=== PATIENT | male | born 1940 | race Caucasian/White ===

== ENCOUNTER 2017-08-13 19:59 | Inpatient (IN) | payer MEDICARE, MEDICAID ==
[2017-08-13] MEDS ORDERED: IPRATROPIUM/ALBUTEROL 0.5-2.5 MG/3 ML AMPUL NEB ONE (20:10)
[2017-08-13] MEDS ORDERED: ALBUTEROL SULFATE 0.083% NEB 2.5 MG/3 ML AMPUL NEB SCH (20:25)
[2017-08-13 20:29] LABS: ABSOLUTE LYMPHOCYTES (AUTO) 2.3 10^3/uL (0.5-4.7); BASOPHILS % (AUTO) 0.4 % (0-2); EOSINOPHILS % (AUTO) 0.2 % (0-6); HEMATOCRIT 36.9 % (37.9-51.0); HEMOGLOBIN 12.3 g/dL (13.5-17.0); LYMPHOCYTES % (AUTO) 16.9 % (13-45); MEAN CORPUSCULAR HEMOGLOBIN 29.7 pg (27.0-33.4); MEAN CORPUSCULAR HGB CONC 33.4 g/dL (32.0-36.0); MEAN CORPUSCULAR VOLUME 89 fl (80-97); MONOCYTES % (AUTO) 7.7 % (3-13); RED BLOOD COUNT 4.15 10^6/uL (4.35-5.55); SEGMENTED NEUTROPHILS % (AUTO) 74.8 % (42-78); WHITE BLOOD COUNT 13.4 10^3/uL (4.0-10.5)
--- NOTE | 2017-08-13 20:37 | RADIOLOGY REPORT (SQ) ---
EXAM DESCRIPTION: CHEST SINGLE VIEW COMPLETED DATE/TIME: 08/13/2017 8:19 pm REASON FOR STUDY: SOB COMPARISON: 06/30/2010 EXAM PARAMETERS: NUMBER OF VIEWS: One view. TECHNIQUE: Single frontal radiographic view of the chest acquired. RADIATION DOSE: NA LIMITATIONS: None. FINDINGS: LUNGS AND PLEURA: Greater than 75% pneumothorax on the left. No midline shift. Right estella g is clear. Underlying obstructive pulmonary disease. MEDIASTINUM AND HILAR STRUCTURES: No masses. Contour normal. HEART AND VASCULAR STRUCTURES: Heart normal in size. Normal vasculature. BONES: No acute findings. HARDWARE: Interval placement of a dual lead transvenous pacemaker. OTHER: No other significant finding. IMPRESSION: High-grade left-sided pneumothorax without tension. COPD. Interval placement of a pacemaker. COMMENT: Pertinent findings on the imaging study reported as a CRITICAL RESULT to MEKA Gonzalez at20:31 on 08/13/2017. Category of Critical Result: Pneumothorax. TECHNICAL DOCUMENTATION: JOB ID: [id number] [employer]- All Rights Reserved
--- NOTE | 2017-08-13 20:42 | ER Document Report ---
ED General - General Chief Complaint: Shortness Of Breath Stated Complaint: DIFFICULTY BREATHING Time Seen by Provider: 08/13/17 20:16 Notes: Patient is a 77-year-old male presents emergency department complaining of shortness of breath. Patient states that this morning at approximately 4 AM he is having shortness of breath and throughout the day has been having dyspnea on exertion. Does admit to history of COPD not on O2. States he does not have breathing treatments at home. States that EMS came and gave him a breathing treatment felt better initially but shortness of breath return throughout the day. Patient denies any previous chest surgery except for pacemaker placed for history of sick sinus syndrome. TRAVEL OUTSIDE OF THE [place] IN LAST 30 DAYS: No - Related Data Allergies/Adverse Reactions: codeine [Codeine] Allergy (Verified 08/13/17 20:43) Home Medications: Current Home Medications Chlorthalidone [Chlorthalidone] 12.5 mg PO DAILY 08/13/17 [History] Metoprolol Tartrate [Lopressor 50 mg Tablet] 50 mg PO BID 08/13/17 [History] Past Medical History - Social History Smoking Status: Former Smoker Family History: Reviewed & Not Pertinent Patient has suicidal ideation: No Patient has homicidal ideation: No - Past Medical History Cardiac Medical History: Reports: Hx Hypercholesterolemia, Hx Hypertension Pulmonary Medical History: Reports: Hx COPD Renal/ Medical History: Denies: Hx Peritoneal Dialysis Past Surgical History: Reports: Hx Cardiac Surgery - pace maker, Hx Pacemaker - Immunizations Hx Diphtheria, Pertussis, Tetanus Vaccination: Yes Review of Systems - Review of Systems Constitutional: No symptoms reported Cardiovascular: See HPI Respiratory: See HPI Gastrointestinal: No symptoms reported -: Yes All other systems reviewed and negative Physical Exam - Vital signs Vitals: Temp Resp BP Pulse Ox 98.4 F 21 H 154/98 H 93 08/13/17 20:10 08/13/17 20:10 08/13/17 20:10 08/13/17 20:10 - Notes Notes: PHYSICAL EXAM GENERAL: Alert, interacts well. HEAD: Normocephalic, atraumatic. EYES: Pupils equal, round, and reactive to light. Extraocular movements intact. ENT: Oral mucosa moist, tongue midline. NECK: Full range of motion. Supple. Trachea midline. LUNGS: Clear to auscultation on the right but diminished on the left in all thao. no wheezes, rales, or rhonchi. No respiratory distress. HEART: Regular rate and rhythm. No murmurs, gallops, or rubs. ABDOMEN: Soft, nondistended, nontender. No guarding, rebound, or rigidity.. Bowel sounds present in all 4 quadrants. EXTREMITIES: Moves all 4 extremities spontaneously. No edema, radial and dorsalis pedis pulses 2/4 bilaterally. No cyanosis. NEUROLOGICAL: Alert and oriented x4. Normal speech. PSYCH: Normal affect, normal mood. SKIN: Warm, dry, normal turgor. No rashes or lesions noted. Course - Re-evaluation Re-evalutation: 08/13/17 20:41 Received call from radiology states the patient has a left pneumothorax. Noted to be a complete pneumothorax on the left without tension. Patient is alert, in no evidence of respiratory distress satting 94% on room air. Patient was placed on nasal cannula. Called surgeon Dr. Quinones for urgent consultation at the bedside for chest tube placement. Please see surgical consultation note regarding procedure 08/14/17 22:00 Patient resting comfortably. Troponin elevated to .113 but patient denies chest pain. Consulted hospitalist for admission who recommend CT chest 08/14/17 00:02 Ct consistent with bullous disease 2/2 COPD. Has been accepted to surgicalist for admission, with hospitalist to consult as needed 08/14/17 07:11 - Vital Signs Vital signs: Temp Pulse Resp BP Pulse Ox 97.8 F 91 20 136/69 H 98 08/14/17 02:13 08/14/17 02:18 08/14/17 02:13 08/14/17 02:13 08/14/17 02:13 - Laboratory Result Diagrams: 08/13/17 20:05 08/13/17 20:05 Laboratory results interpreted by me: 08/13/17 08/13/17 08/13/17 20:05 20:05 20:05 WBC 13.4 H RBC 4.15 L Hgb 12.3 L Hct 36.9 L Absolute Neutrophils 10.0 H Carbon Dioxide 19 L BUN 24 H Glucose 115 H NT-Pro-B Natriuret Pep 1590 H - Diagnostic Test Radiology reviewed: Image reviewed, Reports reviewed - EKG Interpretation by Me EKG shows normal: Sinus rhythm Rate: Tachycardia Rhythm: NSR When compared to previous EKG there are: Previous EKG unavailable Discharge - Discharge Clinical Impression: Pneumothorax Qualifiers: Pneumothorax type: spontaneous, primary Qualified Code(s): J93.11 - Primary spontaneous pneumothorax Condition: Stable Disposition: ADMITTED INPATIENT Admitting Provider: Surgicalist - Stacie Unit Admitted: Surgical Floor
[2017-08-13 20:45] LABS: ALANINE AMINOTRANSFERASE 32 U/L (21-72); ALBUMIN 4.3 g/dL (3.5-5.0); ALKALINE PHOSPHATASE 106 U/L (38-126); ANION GAP 17 (5-19); ASPARTATE AMINO TRANSFERASE 29 U/L (17-59); BILIRUBIN,DIRECT 0.3 mg/dL (0.0-0.4); BILIRUBIN,TOTAL 0.7 mg/dL (0.2-1.3); BLOOD UREA NITROGEN 24 mg/dL (7-20); CALCIUM 9.5 mg/dL (8.4-10.2); CARBON DIOXIDE 19 mmol/L (22-30); CHLORIDE 104 mmol/L (98-107); CREATINE KINASE 86 U/L (55-170); CREATININE RESULT 0.96 mg/dL (0.52-1.25); GLUCOSE 115 mg/dL (75-110); SODIUM 140.4 mmol/L (137-145); TOTAL PROTEIN 7.8 g/dL (6.3-8.2)
[2017-08-13] MEDS ORDERED: MIDAZOLAM 2 MG/2 ML INJ IV ONE (20:48)
[2017-08-13] MEDS ORDERED: MIDAZOLAM 2 MG/2 ML INJ ONE (20:50)
[2017-08-13 20:57] LABS: CREATINE KINASE MB 3.77 ng/mL (<4.55)
[2017-08-13 21:00] LABS: TROPONIN I 0.113 ng/mL
--- NOTE | 2017-08-13 21:19 | RADIOLOGY REPORT (SQ) ---
EXAM DESCRIPTION: CHEST SINGLE VIEW COMPLETED DATE/TIME: 08/13/2017 9:10 pm REASON FOR STUDY: s/p chest tube on L for PTX COMPARISON: 08/13/2017 EXAM PARAMETERS: NUMBER OF VIEWS: One view. TECHNIQUE: Single frontal radiographic view of the chest acquired. RADIATION DOSE: NA LIMITATIONS: None. FINDINGS: LUNGS AND PLEURA: Significant re-expansion of the left lung status post placement of a lar ge caliber chest tube. Right lung remains clear. MEDIASTINUM AND HILAR STRUCTURES: No masses. Contour normal. HEART AND VASCULAR STRUCTURES: Heart normal in size. Normal vasculature. BONES: No acute findings. HARDWARE: None in the chest. OTHER: No other significant finding. IMPRESSION: Significant re-expansion of the left lung status post placement of a large caliber chest tube. TECHNICAL DOCUMENTATION: JOB ID: [id number] [employer]- All Rights Reserved
--- NOTE | 2017-08-13 21:32 | EKG REPORT ---
SEVERITY:- ABNORMAL ECG - SINUS RHYTHM LEFT ANTERIOR FASCICULAR BLOCK : Confirmed by: Howard Capps 13-Aug-2017 21:31:46
--- NOTE | 2017-08-13 21:33 | EKG REPORT ---
SEVERITY:- ABNORMAL ECG - SINUS TACHYCARDIA RIGHT ATRIAL ABNORMALITY LEFT ANTERIOR FASCICULAR BLOCK : Confirmed by: Howard Capps 13-Aug-2017 21:31:58
[2017-08-13] MEDS ORDERED: MORPHINE SULFATE 10 MG/ML INJ IV ONE (21:40)
--- NOTE | 2017-08-13 22:23 | OPERATIVE REPORT E ---
Operative Report NAME: ANNA RUBIN : 1940 AGE: 77Y DATE OF SURGERY: 08/13/2017 ROOM: PREOPERATIVE DIAGNOSIS: ALMOST COMPLETE COLLAPSE OF THE LEFT LUNG, SPONTANEOUS. POSTOPERATIVE DIAGNOSIS: ALMOST COMPLETE COLLAPSE OF THE LEFT LUNG, SPONTANEOUS. OPERATION: Insertion of [place] chest tube, #24-[place], through the left fifth intercostal space, anterior axillary line. SURGEON: REANNA RODAS M.D. ANESTHESIA: Local with IV sedation. TISSUE REMOVED OR ALTERED: PROCEDURE: Patient was placed in slight erect position, about 30 degrees, and the left chest prepped and draped in the usual sterile fashion. An area below the nipple was identified as likely the fifth intercostal space and 1% Xylocaine was injected around this area, and a 1.5 cm incision made. Incision further bluntly deepened with use of the hemostat. Next, the pleura was then further anesthetized. The pleura was then entered and a #24 [place] chest tube was then inserted up to about 15 cm. It was then anchored to the skin with 0 silk. It was then connected to Pleur-evac. Vaseline gauze was wrapped around the entry site and sterile gauze placed around the chest tube. Chest x-ray was obtained and noted the left lung almost completely expanded. Patient tolerated procedure well. Estimated blood loss was minimal. DICTATING PHYSICIAN: REANNA RODAS M.D. [id number] PHY#: [id number] ID: [id number] JOB#: [id number] ACCT: [id number] cc:REANNA RODAS M.D. >
--- NOTE | 2017-08-13 23:15 | RADIOLOGY REPORT (SQ) ---
EXAM DESCRIPTION: CT CHEST WITHOUT CLINICAL HISTORY: 77 years Male, left ptx, poss malignancy COMPARISON: None. TECHNIQUE: No contrast. Coronal and sagittal reformat. This exam was performed according to our departmental dose-optimization program, which includes automated exposure control, adjustment of the mA and/or kV according to patient size and/or use of iterative reconstruction technique.. FINDINGS: Paraseptal emphysema and moderate bullous disease with left lower lobar and lingular streaky and patchy opacity and minimal left apical-only pneumothorax with pleural separation measuring 0.9 cm. Left-sided chest tube. Left cardiac stimulation device and leads. Upper abdomen demonstrates a partially imaged infrarenal abdominal aortic aneurysm which measures at least 3.9 cm. Inferior neck, mild bilateral perinephric fat stranding, mild mid thoracic disc desiccation appear otherwise unremarkable. IMPRESSION: 1. Partially imaged abdominal aortic aneurysm measures at least 3.9 cm; recommend further evaluation with CT of the abdomen and pelvis. 2. Opacities of the left lower lung probably due to fibrosis test scar; differential diagnosis includes pneumonia and neoplasm. If two year stability cannot be shown with comparison to prior exams, CT surveillance is recommended in 7-12 weeks with clinically warranted therapy. 3. Minimal left apical-only pneumothorax with pleural separation measuring 0.9 cm. Left-sided chest tube.
--- NOTE | 2017-08-14 00:28 | PDOC H&P ---
History of Present Illness Admission Date/PCP: RJ SALAZAR MD Patient complains of: shortness of breath History of Present Illness: ANNA RUBIN is a 77 year old male started complaining of shortness of breath around 4 am 08/13/17.Has history of COPD and may have had a strong cough.Given breathing treatment by EMS with initial improvement but shortness of brath came back. In the ED a chest XRay showed complete left pneumothorax with no tension. Past Medical History Cardiac Medical History: Reports: Hyperlipidema, Hypertension Pulmonary Medical History: Reports: Chronic Obstructive Pulmonary Disease (COPD) Past Surgical History Past Surgical History: Reports: Pacemaker Social History Smoking Status: Former Smoker Family History Family History: Reviewed & Not Pertinent Parental Family History Reviewed: Yes - no diabetes Children Family History Reviewed: No Sibling(s) Family History Reviewed.: No Medication/Allergy Home Medications: Aspirin [Aspirin 81 mg Chewable Tablet] 81 mg PO DAILY 04/13/13 Lisinopril [Prinivil 10 mg Tablet] 20 mg PO DAILY 04/13/13 Chlorthalidone [Chlorthalidone] 12.5 mg PO DAILY 08/13/17 Metoprolol Tartrate [Lopressor 50 mg Tablet] 50 mg PO BID 08/13/17 Allergies/Adverse Reactions: codeine [Codeine] Allergy (Verified 08/13/17 20:43) Review of Systems Constitutional: PRESENT: other - no fever nor chills Eyes: PRESENT: other - no visual or hearing problems Nose, Mouth, and Throat: PRESENT: other - no vertigo Cardiovascular: PRESENT: chest pain Respiratory: PRESENT: cough Gastrointestinal: PRESENT: other - no N/V Genitourinary: PRESENT: other - no dysuria Musculoskeletal: PRESENT: other - no joint swelling Integumentary: PRESENT: other - no skin rash Neurological: PRESENT: other - no seizures Psychiatric: PRESENT: other - no hallucinations Endocrine: PRESENT: other - no polyuria, no polydipsia Hematologic/Lymphatic: PRESENT: other - no easy bruisability Physical Exam Vital Signs: Temp Pulse Resp BP Pulse Ox 98.4 F 105 H 16 95/55 L 97 08/13/17 20:19 08/13/17 20:19 08/13/17 22:31 08/13/17 22:31 08/13/17 22:31 Intake & Output 08/12/17 08/13/17 08/14/17 06:59 06:59 06:59 Weight 61 kg General appearance: PRESENT: mild distress Head exam: PRESENT: atraumatic, normocephalic Eye exam: PRESENT: conjunctiva pink Ear exam: PRESENT: normal external ear exam Mouth exam: PRESENT: moist, tongue midline Neck exam: PRESENT: full ROM Respiratory exam: PRESENT: decreased breath sounds - left side Cardiovascular exam: PRESENT: RRR Pulses: PRESENT: normal radial pulses Vascular exam: PRESENT: normal capillary refill GI/Abdominal exam: PRESENT: soft Rectal exam: PRESENT: deferred Extremities exam: PRESENT: other - no joint swelling Neurological exam: PRESENT: alert, oriented to person, oriented to place, oriented to time, oriented to situation Psychiatric exam: PRESENT: appropriate affect Skin exam: PRESENT: normal color, warm Results Laboratory Results: 08/13/17 20:05 08/13/17 20:05 08/13/17 08/13/17 20:05 20:05 WBC 13.4 H RBC 4.15 L Hgb 12.3 L Hct 36.9 L MCV 89 MCH 29.7 MCHC 33.4 RDW 14.0 Plt Count 285 Seg Neutrophils % 74.8 Lymphocytes % 16.9 Monocytes % 7.7 Eosinophils % 0.2 Basophils % 0.4 Absolute Neutrophils 10.0 H Absolute Lymphocytes 2.3 Absolute Monocytes 1.0 Absolute Eosinophils 0.0 Absolute Basophils 0.0 Sodium 140.4 Potassium 4.0 Chloride 104 Carbon Dioxide 19 L Anion Gap 17 BUN 24 H Creatinine 0.96 Est GFR ( Amer) > 60 Est GFR (Non-Af Amer) > 60 Glucose 115 H Calcium 9.5 Total Bilirubin 0.7 AST 29 ALT 32 Alkaline Phosphatase 106 Total Protein 7.8 Albumin 4.3 08/13/17 08/13/17 20:05 20:05 Creatine Kinase 86 CK-MB (CK-2) 3.77 Troponin I 0.113 NT-Pro-B Natriuret Pep 1590 H Impressions: Chest X-Ray 08/13/17 20:58 IMPRESSION: Significant re-expansion of the left lung status post placement of a large caliber chest tube. Chest CT 08/13/17 21:54 IMPRESSION: 1. Partially imaged abdominal aortic aneurysm measures at least 3.9 cm; recommend further evaluation with CT of the abdomen and pelvis. 2. Opacities of the left lower lung probably due to fibrosis test scar; differential diagnosis includes pneumonia and neoplasm. If two year stability cannot be shown with comparison to prior exams, CT surveillance is recommended in 7-12 weeks with clinically warranted therapy. 3. Minimal left apical-only pneumothorax with pleural separation measuring 0.9 cm. Left-sided chest tube. Assessment & Plan - Diagnosis (1) COPD (chronic obstructive pulmonary disease) Qualifiers: COPD type: unspecified COPD Qualified Code(s): J44.9 - Chronic obstructive pulmonary disease, unspecified (2) Pneumothorax Qualifiers: Pneumothorax type: spontaneous, primary Qualified Code(s): J93.11 - Primary spontaneous pneumothorax - Time Time Spent: 30 to 50 Minutes - Inpatient Certification Medical Necessity: Significant Comorbidiites Make Outpatient Treatment Too Risky , Need For Continuous Telemetry Monitoring, Need for Pain Control, Risk of Complication if Not Cared For in Hospital - Plan Summary Plan Summary: A left chest tube was inserted in ED. CT chest and chest xray post chest tube placement showed almost complete re-expansion of left lung Medical consult for elevated troponin and tx of COPD
[2017-08-14] MEDS: MORPHINE SULFATE 10 MG/ML INJ IV PRN ×3 (02:33→18:26)
[2017-08-14] MEDS: KETOROLAC TROMETHAMINE INJ/PF 30 MG/1 ML SDV IV PRN ×2 (06:13→13:41)
[2017-08-14] MEDS: IPRATROPIUM/ALBUTEROL 0.5-2.5 MG/3 ML AMPUL NEB SCH ×3 (08:15→20:40)
--- NOTE | 2017-08-14 08:19 | RADIOLOGY REPORT (SQ) ---
EXAM DESCRIPTION: CHEST SINGLE VIEW COMPLETED DATE/TIME: 08/14/2017 7:33 am REASON FOR STUDY: follow up left pneumothorax post Chest tube placem COMPARISON: 08/13/2017. EXAM PARAMETERS: NUMBER OF VIEWS: One view. TECHNIQUE: Single frontal radiographic view of the chest acquired. RADIATION DOSE: NA LIMITATIONS: None. FINDINGS: LUNGS AND PLEURA: Stable left chest tube. A few linear densities in the left lung. No pn eumothorax. Right lung clear. MEDIASTINUM AND HILAR STRUCTURES: No masses. Contour normal. HEART AND VASCULAR STRUCTURES: Heart normal in size. Normal vasculature. BONES: No acute findings. HARDWARE: Left chest tube. Pacemaker. OTHER: No other significant finding. IMPRESSION: STABLE LEFT SIDE CHEST TUBE. NO PNEUMOTHORAX. A FEW LINEAR DENSITIES IN THE LEFT LUNG MAY BE DUE TO ATELECTASIS OR SCARRING. TECHNICAL DOCUMENTATION: JOB ID: [id number] [employer]- All Rights Reserved
[2017-08-14] MEDS: ENOXAPARIN SODIUM INJ 30 MG/0.3 ML DISP.SYRIN SUBCUT SCH (09:57)
[2017-08-14] MEDS: ASPIRIN 81 MG TABLET, CHEWABLE PO SCH (09:57)
[2017-08-14] MEDS ORDERED: LISINOPRIL 10 MG TABLET PO SCH (10:00)
[2017-08-14] MEDS ORDERED: METOPROLOL TARTRATE 50 MG TABLET PO SCH (10:00)
[2017-08-14] MEDS: FLUTICASONE NASAL SPRAY 50 MCG/SPRY 120 SPRAY/16 GM NASL SCH ×2 (11:32→21:07)
[2017-08-14 13:01] LABS: APPEARANCE,URINE SLIGHTLY-CLOUDY; BILIRUBIN,URINE NEGATIVE (NEGATIVE); GLUCOSE, URINE NEGATIVE (NEGATIVE); KETONES,URINE TRACE mg/dL (NEGATIVE); LEUKOCYTE ESTERASE,URINE NEGATIVE (NEGATIVE); NITRITE,URINE NEGATIVE (NEGATIVE); PROTEIN,URINE NEGATIVE (NEGATIVE); URINE SPECIFIC GRAVITY 1.027; UROBILINOGEN,URINE NEGATIVE mg/dL (<2.0)
--- NOTE | 2017-08-14 15:12 | PDOC CONSULTATION ---
Consultation Consult Date: 08/14/17 Attending physician:: SHANTI MENDIOLA Consult reason:: dyspnea History of Present Illness Admission Date/PCP: 08/14/17 00:11 RJ SALAZAR MD History of Present Illness: ANNA RUBIN is a 77 year old male presented to ED increasing SOB and MERRILL admits to COPD but does ont haveany bronchodialator therapy.MERRILL with ADL's at baselineHeadmits to occasional dry cough;denies hemoptysis.Hos PPD was negative >50 yrs ago.No hx of chronic lung disease as a chid or adolescent.Strong hx of exsposure to passive smoke as a child and adult.He admits to smoking 1 1/2 - 2 ppd x 60 yrs and continues to smike.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,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.No pets and no recent travel.No anginal like chest painsleeps on 2 pillow,no PND,no nocturnal cough.Admits to snoring,restless sleep ,nocturia,unrestful sleep and excessive daytime somulence Past Medical History Cardiac Medical History: Reports: Hyperlipidema, Hypertension Pulmonary Medical History: Reports: Chronic Obstructive Pulmonary Disease (COPD) EENT Medical History: Denies: Ears, Nose Neurological Medical History: Denies: Multiple Sclerosis, Seizures Endocrine Medical History: Denies: Diabetes Mellitus Type 1, Obesity Renal/ Medical History: Denies: Nephrolithiasis Malignancy Medical History: Reports: Colorectal Cancer GI Medical History: Denies: Crohn's Disease, Ulcerative Colitis Musculoskeltal Medical History: Reports: Gout Psychiatric Medical History: Reports: Alcohol Dependency, Tobacco Dependency Traumatic Medical History: Denies: Traumatic Brain Injury Hematology: Reports: Sickle Cell Disease Infectious Medical History: Denies: Hepatitis B Past Surgical History Past Surgical History: Reports: Pacemaker Social History Information Source: Patient, [facility] Records 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 Lives with: Alone Smoking Status: Former Smoker Cigarettes Packs Per Day: 2 Number of Years Smokin Last Time Smoked: 4days Passive smoke exposure as: Both Frequency of Alcohol Use: None Hx Recreational Drug Use: No Hx Prescription Drug Abuse: No Do you have pets?: No Have you had any respiratory illnesses as a child?: No Have you been exposed to any sick contacts recently?: No Have you had any recent respiratory illnesses?: No Have you travelled outside of [place] in the past 12 months?: No Family History Family History: DM, Hypertension Parental Family History Reviewed: Yes Children Family History Reviewed: Yes Sibling(s) Family History Reviewed.: Yes Medication/Allergy Home Medications: Aspirin [Aspirin 81 mg Chewable Tablet] 81 mg PO DAILY 04/13/13 Lisinopril [Prinivil 10 mg Tablet] 20 mg PO DAILY 04/13/13 Chlorthalidone [Chlorthalidone] 12.5 mg PO DAILY 08/13/17 Metoprolol Succinate [Toprol Xl 50 mg Tab.sr] 50 mg PO Q12 08/14/17 Allergies/Adverse Reactions: codeine [Codeine] Allergy (Verified 08/13/17 20:43) Review of Systems Constitutional: PRESENT: weight loss. ABSENT: anorexia, chills, fatigue Eyes: ABSENT: visual disturbances Ears: ABSENT: hearing changes Nose, Mouth, and Throat: ABSENT: sore throat Cardiovascular: PRESENT: dyspnea on exertion. ABSENT: chest pain, edema, orthropnea, palpitations Respiratory: PRESENT: cough, dyspnea. ABSENT: hemoptysis Gastrointestinal: ABSENT: abdominal pain, bloating, constipation, diarrhea, dysphagia, heartburn, nausea, vomiting Genitourinary: ABSENT: difficulty urinating, dysuria, hematuria Musculoskeletal: ABSENT: joint swelling, muscle weakness Integumentary: ABSENT: pruritus, rash Neurological: PRESENT: memory loss. ABSENT: abnormal speech, confusion, convulsions, focal weakness, lack of coordination Psychiatric: ABSENT: hallucinations, homidical ideation, suicidal ideation Endocrine: ABSENT: cold intolerance, heat intolerance Hematologic/Lymphatic: ABSENT: easy bleeding, easy bruising Physical Exam Vital Signs: Temp Pulse Resp BP Pulse Ox 97.7 F 92 14 107/60 98 08/14/17 07:25 08/14/17 08:15 08/14/17 08:15 08/14/17 07:25 08/14/17 08:15 Intake & Output 08/13/17 08/14/17 08/15/17 06:59 06:59 06:59 Intake Total 306 Output Total 0 Balance 306 Weight 60.9 kg General appearance: PRESENT: no acute distress, cooperative, disheveled, thin, well-developed. ABSENT: hard of hearing, mild distress, morbidly obese, obese, severe distress Head exam: PRESENT: atraumatic, normocephalic Eye exam: PRESENT: conjunctiva pale, EOMI. ABSENT: conjunctival injection, conjunctiva pink, nystagmus, periorbital swelling Mouth exam: PRESENT: dry mucosa, neck supple. ABSENT: laceration, moist Teeth exam: PRESENT: poor dentation Neck exam: ABSENT: carotid bruit, JVD, lymphadenopathy, thyromegaly, tracheal deviation, tracheostomy Respiratory exam: PRESENT: decreased breath sounds, prolonged expiratory phas, rhonchi, symmetrical, unlabored, wheezes. ABSENT: accessory muscle use, chest wall tenderness, clear to auscultation teofilo, crackles, rales, retraction, stridor , tachypnea Cardiovascular exam: PRESENT: RRR, +S1, +S2. ABSENT: irregular rhythm Pulses: PRESENT: normal radial pulses GI/Abdominal exam: PRESENT: normal bowel sounds, soft. ABSENT: distended, guarding, mass, organolmegaly, rebound, tenderness Extremities exam: ABSENT: calf tenderness, clubbing, joint swelling Musculoskeletal exam: ABSENT: deformity, dislocation, tenderness Neurological exam: PRESENT: alert, awake Psychiatric exam: PRESENT: normal mood Skin exam: PRESENT: dry, warm Results Laboratory Results: 08/14/17 08/14/17 01:06 05:35 Troponin I 0.111 0.082 Impressions: Chest CT 08/13/17 21:54 IMPRESSION: 1. Partially imaged abdominal aortic aneurysm measures at least 3.9 cm; recommend further evaluation with CT of the abdomen and pelvis. 2. Opacities of the left lower lung probably due to fibrosis test scar; differential diagnosis includes pneumonia and neoplasm. If two year stability cannot be shown with comparison to prior exams, CT surveillance is recommended in 7-12 weeks with clinically warranted therapy. 3. Minimal left apical-only pneumothorax with pleural separation measuring 0.9 cm. Left-sided chest tube. Chest X-Ray 08/14/17 07:00 IMPRESSION: STABLE LEFT SIDE CHEST TUBE. NO PNEUMOTHORAX. A FEW LINEAR DENSITIES IN THE LEFT LUNG MAY BE DUE TO ATELECTASIS OR SCARRING. Assessment & Plan - Diagnosis (1) COPD (chronic obstructive pulmonary disease) Qualifiers: Emphysema type: panlobular Is this a current diagnosis for this admission?: Yes Plan: severe paraseptal panlobular emphysema dronchodialators as you havr initiated (2) Pneumothorax Qualifiers: Pneumothorax type: spontaneous, primary Qualified Code(s): J93.11 - Primary spontaneous pneumothorax Is this a current diagnosis for this admission?: Yes Plan: highly likely this will reoccur consider pleurodesis do not believe candidate for LVRS (3) Tobacco abuse Is this a current diagnosis for this admission?: Yes Plan: stop smoking (4) Tobacco abuse counseling Is this a current diagnosis for this admission?: Yes Plan: discussed risk and dangers of continue smoking;consider transdermal nicotine
--- NOTE | 2017-08-14 15:27 | PDOC PROGRESS REPORT ---
Subjective Progress Note for:: 08/14/17 Subjective:: Pt is seen on morning rounds as a follow up for spontaneous pneumothorax, COPD, and HTN. He is found, sitting upright in bed, on supplemental oxygen at 2 lpm via nasal canula. He appears to be in good spirits today and begins telling jokes. He reports that he experienced dyspnea while up to the bathroom last night which prompted him to call EMS. He was provided one nebulizer treatment with a short period of relief of symptoms and then had sudden, severe, worsening. He was found to have a massive pneumothorax of the left lung. A chest tube was placed by Dr. Quinones; follow up Chest CT and CXR demonstrate a residual minimal left apical pneumothorax and stable chest tube. The patient states that he is breathing easily this morning. He does report left side chest wall pain that is moderately well controlled with pain medications. He denies fever, chills, palpitations, dyspnea at present, and cough. He denies precipitating illness. He does report that he was a heavy tobacco user and was able to stop smoking approximately 6 months ago. He denies previous diagnosis of COPD or emphysema. He has no questions or concerns today. Reason For Visit: SPONTANEOUS LEFT PNEUMOTHORAX,COPD,ELEVATED Physical Exam Vital Signs: Temp Pulse Resp BP Pulse Ox 98.4 F 90 16 90/74 L 95 08/14/17 11:42 08/14/17 14:07 08/14/17 14:07 08/14/17 11:42 08/14/17 11:42 Intake & Output 08/13/17 08/14/17 08/15/17 06:59 06:59 06:59 Intake Total 306 591 Output Total 0 Balance 306 591 Weight 60.9 kg General appearance: PRESENT: no acute distress, well-developed, well-nourished Head exam: PRESENT: atraumatic, normocephalic Eye exam: PRESENT: conjunctiva pink, EOMI, PERRLA. ABSENT: scleral icterus Ear exam: PRESENT: normal external ear exam Mouth exam: PRESENT: moist, tongue midline Neck exam: ABSENT: carotid bruit, JVD, lymphadenopathy, thyromegaly Respiratory exam: PRESENT: chest wall tenderness - at chest tube insertion site , clear to auscultation teofilo, decreased breath sounds - MEHREEN/LML diminished, symmetrical, unlabored. ABSENT: rales, rhonchi, wheezes Cardiovascular exam: PRESENT: RRR, +S1, +S2. ABSENT: diastolic murmur, rubs, systolic murmur Pulses: PRESENT: normal dorsalis pedis pul Vascular exam: PRESENT: normal capillary refill GI/Abdominal exam: PRESENT: normal bowel sounds, soft. ABSENT: distended, guarding, mass, organolmegaly, rebound, tenderness Rectal exam: PRESENT: deferred Extremities exam: PRESENT: full ROM. ABSENT: calf tenderness, clubbing, pedal edema Neurological exam: PRESENT: alert, awake, oriented to person, oriented to place , oriented to time, oriented to situation, CN II-XII grossly intact. ABSENT: motor sensory deficit Psychiatric exam: PRESENT: appropriate affect, normal mood. ABSENT: homicidal ideation, suicidal ideation Skin exam: PRESENT: dry, intact, warm. ABSENT: cyanosis, rash Results Laboratory Results: 08/14/17 11:44 Urine Color YELLOW Urine Appearance SLIGHTLY-CLOUDY Urine pH 5.0 Ur Specific [place] 1.027 Urine Protein NEGATIVE Urine Glucose (UA) NEGATIVE Urine Ketones TRACE H Urine Blood NEGATIVE Urine Nitrite NEGATIVE Ur Leukocyte Esterase NEGATIVE Urine WBC (Auto) 3 Urine RBC (Auto) 1 08/14/17 08/14/17 08/14/17 01:06 05:35 12:12 Troponin I 0.111 0.082 0.065 Impressions: Chest CT 08/13/17 21:54 IMPRESSION: 1. Partially imaged abdominal aortic aneurysm measures at least 3.9 cm; recommend further evaluation with CT of the abdomen and pelvis. 2. Opacities of the left lower lung probably due to fibrosis test scar; differential diagnosis includes pneumonia and neoplasm. If two year stability cannot be shown with comparison to prior exams, CT surveillance is recommended in 7-12 weeks with clinically warranted therapy. 3. Minimal left apical-only pneumothorax with pleural separation measuring 0.9 cm. Left-sided chest tube. Chest X-Ray 08/14/17 07:00 IMPRESSION: STABLE LEFT SIDE CHEST TUBE. NO PNEUMOTHORAX. A FEW LINEAR DENSITIES IN THE LEFT LUNG MAY BE DUE TO ATELECTASIS OR SCARRING. Assessment & Plan - Diagnosis (1) Pneumothorax Qualifiers: Pneumothorax type: spontaneous, primary Qualified Code(s): J93.11 - Primary spontaneous pneumothorax Is this a current diagnosis for this admission?: Yes Plan: Pt presented with sudden onset dyspnea 2/2 spontaneous left pneumothorax. A chest tube was placed by Dr. Quinones last night and subsequent imaging has demonstrated only a residual apex pneumothorax and stable tube. Primary plan per surgery. Supplemental oxygen as needed per protocol, incentive spirometry at bedside. (2) COPD (chronic obstructive pulmonary disease) Qualifiers: Emphysema type: panlobular Is this a current diagnosis for this admission?: Yes Plan: Appreciate Pulmonology's recommendations. Strongly advise against continued tobacco use. Continue Duo-nebs as scheduled. (3) Elevated troponin Plan: Elevated upon admission at 0.113 and tending downward; likey a result of hypoxia /cardiac stress in the setting of a massive pneumothorax. Pt is admitted to the [facility] on continuous cardiac telemetry. Will continue ASA. (4) Elevated brain natriuretic peptide (BNP) level Plan: As above; r/t cardiac stress in setting of massive pneumothorax. No evidence of fulminate heart failure. Continue BB therapy, metorpolol, ASA, and supplemental oxygen as needed. (5) Leukocytosis Plan: No signs of infectious process, likely inflammatory 2/2 pneumothorax and subsequent chest tube placement. Will monitor. No indications for antibiotic therapy at this time. (6) Tobacco abuse Is this a current diagnosis for this admission?: Yes Plan: Pt reports recent smoking cessation; strongly encouraged to avoid all tobacco products. Nicotine replacement therapy was offered and declined at this time. - Time Time Spent with patient: 15-24 minutes - Inpatient Certification Based on my medical assessment, after consideration of the patient's comorbidities, presenting symptoms, or acuity I expect that the services needed warrant INPATIENT care.: Yes I certify that my determination is in accordance with my understanding of Medicare's requirements for reasonable and necessary INPATIENT services [42 CFR 412.3e].: Yes Medical Necessity: Need Close Monitoring Due to Risk of Patient Decompensation
--- NOTE | 2017-08-14 19:01 | PDOC PROGRESS REPORT ---
Subjective Progress Note for:: 08/14/17 Subjective:: Pains chest tube site Reason For Visit: SPONTANEOUS LEFT PNEUMOTHORAX,COPD,ELEVATED Physical Exam Vital Signs: Temp Pulse Resp BP Pulse Ox 98.0 F 82 16 112/72 99 08/14/17 15:12 08/14/17 15:12 08/14/17 15:12 08/14/17 18:00 08/14/17 15:12 Intake & Output 08/13/17 08/14/17 08/15/17 06:59 06:59 06:59 Intake Total 306 791 Output Total 0 Balance 306 791 Weight 60.9 kg Exam: No air leak on the chest tube. CXR left lung well expanded. No more pneumo. Results Laboratory Results: 08/14/17 11:44 Urine Color YELLOW Urine Appearance SLIGHTLY-CLOUDY Urine pH 5.0 Ur Specific [place] 1.027 Urine Protein NEGATIVE Urine Glucose (UA) NEGATIVE Urine Ketones TRACE H Urine Blood NEGATIVE Urine Nitrite NEGATIVE Ur Leukocyte Esterase NEGATIVE Urine WBC (Auto) 3 Urine RBC (Auto) 1 08/14/17 08/14/17 08/14/17 01:06 05:35 12:12 Troponin I 0.111 0.082 0.065 Impressions: Chest CT 08/13/17 21:54 IMPRESSION: 1. Partially imaged abdominal aortic aneurysm measures at least 3.9 cm; recommend further evaluation with CT of the abdomen and pelvis. 2. Opacities of the left lower lung probably due to fibrosis test scar; differential diagnosis includes pneumonia and neoplasm. If two year stability cannot be shown with comparison to prior exams, CT surveillance is recommended in 7-12 weeks with clinically warranted therapy. 3. Minimal left apical-only pneumothorax with pleural separation measuring 0.9 cm. Left-sided chest tube. Chest X-Ray 08/14/17 07:00 IMPRESSION: STABLE LEFT SIDE CHEST TUBE. NO PNEUMOTHORAX. A FEW LINEAR DENSITIES IN THE LEFT LUNG MAY BE DUE TO ATELECTASIS OR SCARRING. Assessment & Plan - Diagnosis (1) COPD (chronic obstructive pulmonary disease) Qualifiers: Emphysema type: panlobular Is this a current diagnosis for this admission?: Yes (2) Pneumothorax Qualifiers: Pneumothorax type: spontaneous, primary Qualified Code(s): J93.11 - Primary spontaneous pneumothorax Is this a current diagnosis for this admission?: Yes - Time Time Spent with patient: 15-24 minutes - Inpatient Certification Medical Necessity: Need For Continuous Telemetry Monitoring, Need for Pain Control, Risk of Complication if Not Cared For in Hospital, Risk of Diagnosis Which Will Require Inpatient Eval/Care/Monitoring - Plan Summary Plan Summary: D/C chest tube in am.
[2017-08-14] MEDS: METOPROLOL SUCCINATE 25 MG TAB.SR.24H PO SCH (21:07)
[2017-08-14] MEDS ORDERED: METOPROLOL SUCCINATE 50 MG TAB.SR.24H PO SCH (22:00)
[2017-08-15 00:46] LABS: ANION GAP 13 (5-19); BLOOD UREA NITROGEN 39 mg/dL (7-20); CALCIUM 9.3 mg/dL (8.4-10.2); CARBON DIOXIDE 24 mmol/L (22-30); CHLORIDE 99 mmol/L (98-107); CREATININE RESULT 1.15 mg/dL (0.52-1.25); GLUCOSE 111 mg/dL (75-110); MAGNESIUM 1.7 mg/dL (1.6-2.3); POTASSIUM 4.2 mmol/L (3.6-5.0); SODIUM 135.6 mmol/L (137-145)
[2017-08-15] MEDS: IPRATROPIUM/ALBUTEROL 0.5-2.5 MG/3 ML AMPUL NEB SCH ×3 (01:49→14:01)
--- NOTE | 2017-08-15 03:45 | EKG REPORT ---
SEVERITY:- BORDERLINE ECG - SINUS RHYTHM LEFT AXIS DEVIATION CONSIDER ANTERIOR INFARCT : Confirmed by: Howard Capps 15-Aug-2017 03:44:59
[2017-08-15] MEDS ORDERED: NORMAL SALINE 1000 ML 1,000 ML IV ONE (05:37)
[2017-08-15 06:35] LABS: HEMATOCRIT 31.6 % (37.9-51.0); HEMOGLOBIN 10.8 g/dL (13.5-17.0); HGB HCT DIFFERENCE 0.8; MEAN CORPUSCULAR HEMOGLOBIN 29.8 pg (27.0-33.4); MEAN CORPUSCULAR HGB CONC 34.2 g/dL (32.0-36.0); MEAN CORPUSCULAR VOLUME 87 fl (80-97); RED BLOOD COUNT 3.63 10^6/uL (4.35-5.55); RED CELL DISTRIBUTION WIDTH 14.4 % (11.5-14.0)
[2017-08-15] MEDS: KETOROLAC TROMETHAMINE INJ/PF 30 MG/1 ML SDV IV PRN (06:41)
--- NOTE | 2017-08-15 06:50 | PDOC CONSULTATION ---
Consultation Consult Date: 08/14/17 Attending physician:: REANNA RODAS Consult reason:: COPD History of Present Illness Admission Date/PCP: 08/14/17 00:11 RJ SALAZAR MD History of Present Illness: ANNA RUBIN is a 77 year old male with history of hypertension, colorectal cancer, status post pacemaker placement, COPD and ongoing tobacco and alcohol dependence. Patient presents after 8 hours of dyspnea with exertion prompting a call to EMS where he receives breathing treatments with satisfactory improvement and declines transfer to the emergency room. Patient later developed recurrence with increased severity prompting emergency room evaluation where he is found to have a massive left-sided pneumothorax. Surgery places a chest tube resulting in near complete reexpansion. He denies chest pain nausea vomiting diaphoresis or palpitations. Past Medical History Cardiac Medical History: Reports: Hyperlipidema, Hypertension Pulmonary Medical History: Reports: Chronic Obstructive Pulmonary Disease (COPD) EENT Medical History: Denies: Ears, Nose Neurological Medical History: Denies: Multiple Sclerosis, Seizures Endocrine Medical History: Denies: Diabetes Mellitus Type 1, Obesity Renal/ Medical History: Denies: Nephrolithiasis Malignancy Medical History: Reports: Colorectal Cancer GI Medical History: Denies: Crohn's Disease, Ulcerative Colitis Musculoskeltal Medical History: Reports: Gout Psychiatric Medical History: Reports: Alcohol Dependency, Tobacco Dependency Traumatic Medical History: Denies: Traumatic Brain Injury Hematology: Reports: Sickle Cell Disease Infectious Medical History: Denies: Hepatitis B Past Surgical History Past Surgical History: Reports: Pacemaker Social History Lives with: Alone Smoking Status: Former Smoker Cigarettes Packs Per Day: 2 Number of Years Smokin Last Time Smoked: 4days Frequency of Alcohol Use: Occasional Hx Recreational Drug Use: No Hx Prescription Drug Abuse: No - Advance Directive Resuscitation Status: Full Code Family History Family History: DM, Hypertension Parental Family History Reviewed: Yes Children Family History Reviewed: Yes Sibling(s) Family History Reviewed.: Yes Medication/Allergy Home Medications: Aspirin [Aspirin 81 mg Chewable Tablet] 81 mg PO DAILY 04/13/13 Lisinopril [Prinivil 10 mg Tablet] 20 mg PO DAILY 04/13/13 Chlorthalidone [Chlorthalidone] 12.5 mg PO DAILY 08/13/17 Metoprolol Succinate [Toprol Xl 50 mg Tab.sr] 50 mg PO Q12 08/14/17 Allergies/Adverse Reactions: codeine [Codeine] Allergy (Verified 08/13/17 20:43) Review of Systems Constitutional: ABSENT: chills, fever(s), headache(s), weight gain, weight loss Eyes: ABSENT: visual disturbances Ears: ABSENT: hearing changes Cardiovascular: ABSENT: chest pain, dyspnea on exertion, edema, orthropnea, palpitations Respiratory: ABSENT: cough, hemoptysis Gastrointestinal: ABSENT: abdominal pain, constipation, diarrhea, hematemesis, hematochezia, nausea, vomiting Genitourinary: ABSENT: dysuria, hematuria Musculoskeletal: ABSENT: joint swelling Integumentary: ABSENT: rash, wounds Neurological: ABSENT: abnormal gait, abnormal speech, confusion, dizziness, focal weakness, syncope Psychiatric: ABSENT: anxiety, depression, homidical ideation, suicidal ideation Endocrine: ABSENT: cold intolerance, heat intolerance, polydipsia, polyuria Hematologic/Lymphatic: ABSENT: easy bleeding, easy bruising Physical Exam Vital Signs: Temp Pulse Resp BP Pulse Ox 98.1 F 88 18 96/64 L 96 08/15/17 03:18 08/15/17 03:18 08/15/17 03:18 08/15/17 03:18 08/15/17 03:18 Intake & Output 08/13/17 08/14/17 08/15/17 11:59 11:59 11:59 Intake Total 306 1291 Output Total 0 400 Balance 306 891 Weight 60.9 kg 60.7 kg General appearance: PRESENT: no acute distress, well-developed, well-nourished Head exam: PRESENT: atraumatic, normocephalic Eye exam: PRESENT: conjunctiva pink, EOMI, PERRLA. ABSENT: scleral icterus Ear exam: PRESENT: normal external ear exam Mouth exam: PRESENT: moist, tongue midline Neck exam: ABSENT: carotid bruit, JVD, lymphadenopathy, thyromegaly Respiratory exam: PRESENT: accessory muscle use, crackles, prolonged expiratory phas, retraction, tachypnea. ABSENT: rales, rhonchi, wheezes Cardiovascular exam: PRESENT: RRR. ABSENT: diastolic murmur, rubs, systolic murmur Pulses: PRESENT: normal dorsalis pedis pul Vascular exam: PRESENT: normal capillary refill GI/Abdominal exam: PRESENT: normal bowel sounds, soft. ABSENT: distended, guarding, mass, organolmegaly, rebound, tenderness Rectal exam: PRESENT: deferred Extremities exam: PRESENT: full ROM. ABSENT: calf tenderness, clubbing, pedal edema Neurological exam: PRESENT: alert, awake, oriented to person, oriented to place , oriented to time, oriented to situation, CN II-XII grossly intact. ABSENT: motor sensory deficit Psychiatric exam: PRESENT: appropriate affect, normal mood. ABSENT: homicidal ideation, suicidal ideation Skin exam: PRESENT: dry, intact, warm. ABSENT: cyanosis, rash Results Laboratory Results: 08/14/17 08/15/17 11:44 00:24 Sodium 135.6 L Potassium 4.2 Chloride 99 Carbon Dioxide 24 Anion Gap 13 BUN 39 H Creatinine 1.15 Est GFR ( Amer) > 60 Est GFR (Non-Af Amer) > 60 Glucose 111 H Calcium 9.3 Magnesium 1.7 Urine Color YELLOW Urine Appearance SLIGHTLY-CLOUDY Urine pH 5.0 Ur Specific [place] 1.027 Urine Protein NEGATIVE Urine Glucose (UA) NEGATIVE Urine Ketones TRACE H Urine Blood NEGATIVE Urine Nitrite NEGATIVE Ur Leukocyte Esterase NEGATIVE Urine WBC (Auto) 3 Urine RBC (Auto) 1 08/14/17 08/14/17 08/14/17 01:06 05:35 12:12 Troponin I 0.111 0.082 0.065 08/14/17 16:57 Troponin I 0.061 Impressions: Chest CT 08/13/17 21:54 IMPRESSION: 1. Partially imaged abdominal aortic aneurysm measures at least 3.9 cm; recommend further evaluation with CT of the abdomen and pelvis. 2. Opacities of the left lower lung probably due to fibrosis test scar; differential diagnosis includes pneumonia and neoplasm. If two year stability cannot be shown with comparison to prior exams, CT surveillance is recommended in 7-12 weeks with clinically warranted therapy. 3. Minimal left apical-only pneumothorax with pleural separation measuring 0.9 cm. Left-sided chest tube. Chest X-Ray 08/14/17 07:00 IMPRESSION: STABLE LEFT SIDE CHEST TUBE. NO PNEUMOTHORAX. A FEW LINEAR DENSITIES IN THE LEFT LUNG MAY BE DUE TO ATELECTASIS OR SCARRING. Assessment & Plan - Diagnosis (1) COPD (chronic obstructive pulmonary disease) Qualifiers: Emphysema type: panlobular Is this a current diagnosis for this admission?: Yes Plan: Supplemental oxygen, flutter valve, incentive spirometry, albuterol and Atrovent. (2) Elevated troponin Is this a current diagnosis for this admission?: Yes Plan: Most likely secondary to spontaneous pneumothorax and troponin leak. Currently asymptomatic, no evidence of acute CT on EKG, follow-up serial cardiac enzymes. (3) Tobacco abuse Is this a current diagnosis for this admission?: Yes Plan: Tobacco Dependence patient received tobacco cessation counseling and offered nicotine replacement options - Time Time Spent: 30 to 50 Minutes
[2017-08-15 07:08] LABS: ANION GAP 13 (5-19); BLOOD UREA NITROGEN 34 mg/dL (7-20); CALCIUM 9.3 mg/dL (8.4-10.2); CARBON DIOXIDE 22 mmol/L (22-30); CHLORIDE 102 mmol/L (98-107); CREATININE RESULT 0.99 mg/dL (0.52-1.25); GLUCOSE 111 mg/dL (75-110); POTASSIUM 4.1 mmol/L (3.6-5.0); SODIUM 136.7 mmol/L (137-145)
[2017-08-15] MEDS ORDERED: LISINOPRIL 10 MG TABLET PO SCH (07:21)
[2017-08-15] MEDS ORDERED: NORMAL SALINE 1000 ML 500 ML IV ONE (07:22)
[2017-08-15] MEDS: METOPROLOL SUCCINATE 25 MG TAB.SR.24H PO SCH (09:27)
[2017-08-15] MEDS: ASPIRIN 81 MG TABLET, CHEWABLE PO SCH (09:30)
[2017-08-15] MEDS: ENOXAPARIN SODIUM INJ 30 MG/0.3 ML DISP.SYRIN SUBCUT SCH (09:30)
[2017-08-15] MEDS: FLUTICASONE NASAL SPRAY 50 MCG/SPRY 120 SPRAY/16 GM NASL SCH (09:32)
[2017-08-15] MEDS ORDERED: THIAMINE HCL 100 MG TABLET PO SCH (10:00)
[2017-08-15] MEDS ORDERED: FOLIC ACID 1 MG TABLET PO SCH (10:00)
--- NOTE | 2017-08-15 12:01 | PDOC PROGRESS REPORT ---
Subjective Progress Note for:: 08/15/17 Subjective:: Pt is seen on morning rounds as a follow up for spontaneous pneumothorax, COPD, and HTN. He is found, sitting upright in bed on room air. The patient states that he is breathing easily this morning and states that his chest wall pain has improved and is well controlled by current pain medications. He tells me that the surgeon has informed him that the chest tube is going to be removed today. Nursing reports that he was in a ventricular rhythm overnight. He denies having had episodes of chest pain or palpitations. He states that he is established with [facility] for his sick sinus syndrome (pt has pacemaker). He denies fever, chills, chest pain, palpitations, dyspnea, and cough. He has no other questions or concerns today. Reason For Visit: SPONTANEOUS LEFT PNEUMOTHORAX,COPD,ELEVATED Physical Exam Vital Signs: Temp Pulse Resp BP Pulse Ox 98.0 F 62 14 147/68 H 96 08/15/17 07:14 08/15/17 07:49 08/15/17 07:49 08/15/17 07:14 08/15/17 07:49 Intake & Output 08/14/17 08/15/17 08/16/17 06:59 06:59 06:59 Intake Total 306 1542 Output Total 0 400 Balance 306 1142 Weight 60.9 kg 60.7 kg General appearance: PRESENT: no acute distress, well-developed, well-nourished Head exam: PRESENT: atraumatic, normocephalic Eye exam: PRESENT: conjunctiva pink, EOMI, PERRLA. ABSENT: scleral icterus Ear exam: PRESENT: normal external ear exam Mouth exam: PRESENT: moist, tongue midline Neck exam: ABSENT: carotid bruit, JVD, lymphadenopathy, thyromegaly Respiratory exam: PRESENT: clear to auscultation teofilo, symmetrical, unlabored. ABSENT: rales, rhonchi, wheezes Cardiovascular exam: PRESENT: RRR, +S1, +S2. ABSENT: diastolic murmur, rubs, systolic murmur Pulses: PRESENT: normal dorsalis pedis pul Vascular exam: PRESENT: normal capillary refill GI/Abdominal exam: PRESENT: normal bowel sounds, soft. ABSENT: distended, guarding, mass, organolmegaly, rebound, tenderness Rectal exam: PRESENT: deferred Extremities exam: PRESENT: full ROM. ABSENT: calf tenderness, clubbing, pedal edema Neurological exam: PRESENT: alert, awake, oriented to person, oriented to place , oriented to time, oriented to situation, CN II-XII grossly intact. ABSENT: motor sensory deficit Psychiatric exam: PRESENT: appropriate affect, normal mood. ABSENT: homicidal ideation, suicidal ideation Skin exam: PRESENT: dry, intact, warm. ABSENT: cyanosis, rash Results Laboratory Results: 08/15/17 05:59 08/15/17 05:59 08/14/17 08/15/17 08/15/17 11:44 00:24 05:59 WBC 14.0 H RBC 3.63 L Hgb 10.8 L Hct 31.6 L MCV 87 MCH 29.8 MCHC 34.2 RDW 14.4 H Plt Count 223 Sodium 135.6 L Potassium 4.2 Chloride 99 Carbon Dioxide 24 Anion Gap 13 BUN 39 H Creatinine 1.15 Est GFR ( Amer) > 60 Est GFR (Non-Af Amer) > 60 Glucose 111 H Calcium 9.3 Magnesium 1.7 Urine Color YELLOW Urine Appearance SLIGHTLY-CLOUDY Urine pH 5.0 Ur Specific [place] 1.027 Urine Protein NEGATIVE Urine Glucose (UA) NEGATIVE Urine Ketones TRACE H Urine Blood NEGATIVE Urine Nitrite NEGATIVE Ur Leukocyte Esterase NEGATIVE Urine WBC (Auto) 3 Urine RBC (Auto) 1 08/15/17 05:59 WBC RBC Hgb Hct MCV MCH MCHC RDW Plt Count Sodium 136.7 L Potassium 4.1 Chloride 102 Carbon Dioxide 22 Anion Gap 13 BUN 34 H Creatinine 0.99 Est GFR ( Amer) > 60 Est GFR (Non-Af Amer) > 60 Glucose 111 H Calcium 9.3 Magnesium Urine Color Urine Appearance Urine pH Ur Specific [place] Urine Protein Urine Glucose (UA) Urine Ketones Urine Blood Urine Nitrite Ur Leukocyte Esterase Urine WBC (Auto) Urine RBC (Auto) 08/14/17 08/14/17 08/14/17 01:06 05:35 12:12 Troponin I 0.111 0.082 0.065 08/14/17 16:57 Troponin I 0.061 Impressions: Chest CT 08/13/17 21:54 IMPRESSION: 1. Partially imaged abdominal aortic aneurysm measures at least 3.9 cm; recommend further evaluation with CT of the abdomen and pelvis. 2. Opacities of the left lower lung probably due to fibrosis test scar; differential diagnosis includes pneumonia and neoplasm. If two year stability cannot be shown with comparison to prior exams, CT surveillance is recommended in 7-12 weeks with clinically warranted therapy. 3. Minimal left apical-only pneumothorax with pleural separation measuring 0.9 cm. Left-sided chest tube. Chest X-Ray 08/14/17 07:00 IMPRESSION: STABLE LEFT SIDE CHEST TUBE. NO PNEUMOTHORAX. A FEW LINEAR DENSITIES IN THE LEFT LUNG MAY BE DUE TO ATELECTASIS OR SCARRING. Assessment & Plan - Diagnosis (1) Pneumothorax Qualifiers: Pneumothorax type: spontaneous, primary Qualified Code(s): J93.11 - Primary spontaneous pneumothorax Is this a current diagnosis for this admission?: Yes Plan: Pt presented with sudden onset dyspnea 2/2 spontaneous left pneumothorax. A chest tube was placed by Dr. Quinones last night and subsequent imaging has demonstrated only a residual apex pneumothorax and stable tube. Primary plan per surgery. Supplemental oxygen as needed per protocol, incentive spirometry at bedside. (2) COPD (chronic obstructive pulmonary disease) Qualifiers: Emphysema type: panlobular Is this a current diagnosis for this admission?: Yes Plan: Appreciate Pulmonology's recommendations. Strongly advise against continued tobacco use. Continue Duo-nebs as scheduled; should be discharged on LABA/LAMA. (3) Elevated troponin Is this a current diagnosis for this admission?: Yes Plan: Elevated upon admission at 0.113 and tending downward; likey a result of hypoxia /cardiac stress in the setting of a massive pneumothorax. Pt is admitted to the [facility] on continuous cardiac telemetry. Will continue ASA. (4) Elevated brain natriuretic peptide (BNP) level Plan: As above; r/t cardiac stress in setting of massive pneumothorax. No evidence of fulminate heart failure. Continue BB therapy, metorpolol, ASA, and supplemental oxygen as needed. (5) Leukocytosis Plan: No signs of infectious process, likely inflammatory 2/2 pneumothorax and subsequent chest tube placement. Will monitor. No indications for antibiotic therapy at this time. (6) Tobacco abuse Is this a current diagnosis for this admission?: Yes Plan: Pt reports recent smoking cessation; strongly encouraged to avoid all tobacco products. Nicotine replacement therapy was offered and declined at this time. (7) Paced cardiac rhythm Is this a current diagnosis for this admission?: Yes Plan: Pt was noted to have a vernacularly paced rhythm overnight. He is currently in sinus rhythm. BMP and magnesium levels were followed. Pacemaker has been interrogated. - Time Time Spent with patient: 25-34 minutes Smoking Cessation Education: 3 to 10 minutes Medications reviewed and adjusted accordingly: Yes Anticipated discharge: Home Within: Other - Plan per Surgery - Inpatient Certification Based on my medical assessment, after consideration of the patient's comorbidities, presenting symptoms, or acuity I expect that the services needed warrant INPATIENT care.: Yes I certify that my determination is in accordance with my understanding of Medicare's requirements for reasonable and necessary INPATIENT services [42 CFR 412.3e].: Yes Medical Necessity: Risk of Complication if Not Cared For in Hospital
--- NOTE | 2017-08-15 14:26 | RADIOLOGY REPORT (SQ) ---
EXAM DESCRIPTION: CHEST SINGLE VIEW COMPLETED DATE/TIME: 08/15/2017 2:19 pm REASON FOR STUDY: chest tube removal COMPARISON: 08/14/2017 EXAM PARAMETERS: NUMBER OF VIEWS: One view. TECHNIQUE: Single frontal radiographic view of the chest acquired. RADIATION DOSE: NA LIMITATIONS: None. FINDINGS: LUNGS AND PLEURA: Left chest tube removed. No residual pneumothorax. Right lung clear. MEDIASTINUM AND HILAR STRUCTURES: No masses. Contour normal. HEART AND VASCULAR STRUCTURES: Heart normal in size. Normal vasculature. BONES: No acute findings. HARDWARE: Stable. OTHER: None IMPRESSION: Post chest tube removal without recurrent pneumothorax. TECHNICAL DOCUMENTATION: JOB ID: [id number] [employer]- All Rights Reserved
[2017-08-15 16:05] VITALS: BP 110/68
== END 2017-08-15 17:11 | disposition home or self-care (01) | DRG 201 ==
LOC: ER 19:59 → EH 08-14 00:11 → 3W 08-14 02:11
PROVIDERS: ATTEND Surgery
PROC: 0W9B00Z Drainage of Left Pleural Cavity with Drainage Device, Open Approach (ICD-10-PCS; principal; 2017-08-13)
DX: J93.11 Primary spontaneous pneumothorax (principal); J44.9 Chronic obstructive pulmonary disease, unspecified; I10 Essential (primary) hypertension; E78.5 Hyperlipidemia, unspecified; M10.9 Gout, unspecified; Z79.82 Long term (current) use of aspirin; Z79.899 Other long term (current) drug therapy; Z87.891 Personal history of nicotine dependence; Z88.8 Allergy status to other drugs, medicaments and biological substances; Z95.0 Presence of cardiac pacemaker; Z85.038 Personal history of other malignant neoplasm of large intestine
CPT/HCPCS: 36415; 71010; 71250; 80048; 80053; 81001; 82550; 82553; 83735; 83880; 84484; 85025; 85027; 87040; 93005; 93010; 94640; 94799; 96372; 96374; 99285; J1650; J1885; J2250; J2270; J7030; J7620

== ENCOUNTER 2017-08-19 11:45 | Inpatient (IN) | payer MEDICARE, MEDICAID ==
--- NOTE | 2017-08-19 11:49 | ER Document Report ---
ED Respiratory Problem - General Mode of Arrival: Medic Information source: Patient TRAVEL OUTSIDE OF THE [place] IN LAST 30 DAYS: No <REGINA HERNANDEZ - Last Filed: 08/19/17 12:26> <DANGELO SWANSON - Last Filed: 08/19/17 15:04> - General Stated Complaint: BREATHING PROBLEMS Time Seen by Provider: 08/19/17 11:49 Notes: Patient is a 77-year-old male that presents to the emergency department today with complaints of shortness of breath. Patient had a chest tube placed on 08/13 at this facility secondary to a left-sided pneumothorax. The chest tube was removed today and the patient became acutely short of breath after removal. Patient has a history of COPD. (REGINA HERNANDEZ) - Related Data Allergies/Adverse Reactions: codeine [Codeine] Allergy (Verified 08/13/17 20:43) Home Medications: Current Home Medications Aspirin [Aspirin EC] 81 mg PO DAILY 08/19/17 [History] Chlorthalidone [Chlorthalidone 25 mg Tablet] 12.5 mg PO DAILY 08/19/17 [History] Lisinopril [Zestril] 20 mg PO DAILY 08/19/17 [History] Metoprolol Tartrate [Lopressor 50 mg Tablet] 50 mg PO Q12 08/19/17 [History] Umeclidinium Brm/Vilanterol Tr [Anoro Ellipta 62.5-25 Mcg INH] 1 puff IN DAILY 08/19/17 [History] Past Medical History - General Information source: Patient - Social History Smoking Status: Never Smoker Cigarette use (# per day): No Frequency of alcohol use: None Drug Abuse: None Lives with: Family Family History: Reviewed & Not Pertinent, DM, Hypertension - Past Medical History Cardiac Medical History: Reports: Hx Hypercholesterolemia, Hx Hypertension Pulmonary Medical History: Reports: Hx COPD Malignancy Medical History: Reports Hx Colorectal Cancer Musculoskeltal Medical History: Reports Hx Gout Traumatic Medical History: Reports: Hx Pneumothorax Past Surgical History: Reports: Hx Cardiac Surgery - pace maker, Hx Pacemaker - Immunizations Hx Diphtheria, Pertussis, Tetanus Vaccination: Yes <REGINA HERNANDEZ - Last Filed: 08/19/17 12:26> Review of Systems - Review of Systems Constitutional: No symptoms reported EENT: No symptoms reported Cardiovascular: No symptoms reported Respiratory: See HPI, Short of breath, Wheezing Gastrointestinal: No symptoms reported Genitourinary: No symptoms reported Male Genitourinary: No symptoms reported Musculoskeletal: No symptoms reported Skin: No symptoms reported Hematologic/Lymphatic: No symptoms reported Neurological/Psychological: No symptoms reported -: Yes All other systems reviewed and negative <REGINA HERNANDEZ - Last Filed: 08/19/17 12:26> Physical Exam <REGINA HERNANDEZ - Last Filed: 08/19/17 12:26> <DANGELO SWANSON - Last Filed: 08/19/17 15:04> - Vital signs Vitals: Pulse Ox 95 08/19/17 11:57 - Notes Notes: Physical Exam: General: Alert, uncomfortable, moderate distress. HEENT: Normocephalic. Atraumatic. PERRL. Extraocular movements intact. Oropharynx clear. Neck: Supple. Non-tender. Respiratory: Moderate respiratory distress. Wheezing in all lung thao on the right, absent breath sounds on the left. Cardiovascular: Regular rate and rhythm. Abdominal: Normal Inspection. Non-tender. No distension. Normal Bowel Sounds. Back: Non-tender. No deformity or step off. Extremities: Moves all four extremities. Upper extremities: Normal inspection. Normal ROM. Lower extremities: Normal inspection. No edema. Normal ROM. Neurological: Normal cognition. AAOx4. Normal speech. Psychological: Normal affect. Normal Mood. Skin: Warm. Dry. Normal color. (REGINA HERNANDEZ) Course - Laboratory Result Diagrams: 08/19/17 12:00 08/19/17 12:00 <REGINA HERNANDEZ - Last Filed: 08/19/17 12:26> - Laboratory Result Diagrams: 08/19/17 12:00 08/19/17 12:00 <DANGELO SWANSON - Last Filed: 08/19/17 15:04> - Re-evaluation Re-evalutation: 08/19/17 Patient is a 77-year-old male who presents with difficulty breathing and decreased breath sounds on the left. Large pneumothorax on chest x-ray. Surgery was consulted and Dr. Jeter came to place chest tube. Patient was sedated for procedure. Lung reinflated on repeat chest x-ray and patient appears improved. Wheezing improved after nebulizer treatment by EMS and ketamine was given for sedation. Patient will be admitted to the surgery service. Stable at time of admission. (DANGELO SWANSON) - Vital Signs Vital signs: Temp Pulse Resp BP Pulse Ox 97.8 F 92 22 H 128/77 H 98 08/19/17 14:09 08/19/17 14:09 08/19/17 14:09 08/19/17 14:09 08/19/17 14:09 - Laboratory Laboratory results interpreted by me: 08/19/17 08/19/17 12:00 12:00 WBC 14.1 H RBC 3.93 L Hgb 11.7 L Hct 34.7 L RDW 14.4 H Lymphocytes % 11.6 L Absolute Neutrophils 10.9 H BUN 25 H Glucose 118 H Procedures - Conscious Sedation Conscious sedation Consent obtained: Yes Pt with a mild systemic disease.: P2. - ASA Classification. Airway Evaluation: Normal anatomy Mallampati Classification: Class 2 Used during procedure: Suction available, IV access obtained, Pulse ox on pt., personnel monitor on pt. Medications administered: Ketamine Reversal agents: None I personally performed/intraservice time: Sedation Complications: No <DANGELO SWANSON - Last Filed: 08/19/17 15:04> Critical Care Note - Critical Care Note Total time excluding time spent on procedures (mins): 35 - Evaluation and management of respiratory distress, diagnosis of pneumothorax,Coordination with specialist, tion with specialist and admission, counseling of patient <DANGELO SWANSON - Last Filed: 08/19/17 15:04> Discharge <REGINA HERNANDEZ - Last Filed: 08/19/17 12:26> - Discharge Admitting Provider: Surgicalist - Su Unit Admitted: Surgical Floor <DANGELO SWANSON - Last Filed: 08/19/17 15:04> - Discharge Clinical Impression: Pneumothorax Qualifiers: Pneumothorax type: unspecified pneumothorax Qualified Code(s): J93.9 - Pneumothorax, unspecified COPD (chronic obstructive pulmonary disease) Qualifiers: COPD type: unspecified COPD Qualified Code(s): J44.9 - Chronic obstructive pulmonary disease, unspecified Condition: Stable Disposition: ADMITTED INPATIENT Scribe Attestation: 08/19/17 15:04 I personally performed the services described in the documentation, reviewed and edited the documentation which was dictated to the scribe in my presence, and it accurately records my words and actions. (DANGELO SWANSON) Scribe Documentation - Scribe Written by Geoffe:: Bro Mattson, 08/19/2017 1155 acting as scribe for :: Mia <REGINA HERNANDEZ - Last Filed: 08/19/17 12:26>
[2017-08-19] MEDS ORDERED: KETAMINE HCL INJ 500 MG/10 ML VIAL IV ONE (11:56)
[2017-08-19] MEDS ORDERED: LIDOCAINE 1% INJ-PF (10 MG/ML) 30 ML SDV ONE (12:10)
--- NOTE | 2017-08-19 12:15 | RADIOLOGY REPORT (SQ) ---
EXAM DESCRIPTION: CHEST SINGLE VIEW COMPLETED DATE/TIME: 08/19/2017 11:58 am REASON FOR STUDY: SOB, recent chest tube removal COMPARISON: CT chest 08/13/2017 Chest films 08/15/2017, 08/14/2017, 08/13/2017, 06/30/2010 EXAM PARAMETERS: NUMBER OF VIEWS: One view. TECHNIQUE: Single frontal radiographic view of the chest acquired. RADIATION DOSE: NA LIMITATIONS: None. FINDINGS: LUNGS AND PLEURA: Large left pneumothorax with complete collapse of the left lung. Minima l [id number] mediastinal shift. Right lung well inflated and clear. No gross right or left pleural effusions. MEDIASTINUM AND HILAR STRUCTURES: No masses. Contour normal. HEART AND VASCULAR STRUCTURES: Heart normal in size. Normal vasculature. BONES: No acute findings. HARDWARE: Left-sided dual lead pacemaker OTHER: No other significant finding. IMPRESSION: Large left pneumothorax with complete collapse of the left lung and minimal [id number] t mediastinal shift. COMMENT: Pertinent findings on the imaging study reported as a CRITICAL RESULT to Dr Talbot at12:0 4 on 08/19/2017. Category of Critical Result: Large left pneumothorax. Potential tension pneumothorax. TECHNICAL DOCUMENTATION: JOB ID: [id number] [email or web address]- All Rights Reserved
[2017-08-19 12:17] LABS: ABSOLUTE BASOPHILS # (AUTO) 0.1 10^3/uL (0.0-0.2); ABSOLUTE EOSINOPHILS # (AUTO) 0.1 10^3/uL (0.0-0.6); ABSOLUTE LYMPHOCYTES (AUTO) 1.6 10^3/uL (0.5-4.7); ABSOLUTE MONOCYTES (AUTO) 1.4 10^3/uL (0.1-1.4); ABSOLUTE NEUT (AUTO) 10.9 10^3/uL (1.7-8.2); BASOPHILS % (AUTO) 0.5 % (0-2); EOSINOPHILS % (AUTO) 0.7 % (0-6); HEMATOCRIT 34.7 % (37.9-51.0); HEMOGLOBIN 11.7 g/dL (13.5-17.0); HGB HCT DIFFERENCE 0.4; LYMPHOCYTES % (AUTO) 11.6 % (13-45); MEAN CORPUSCULAR HEMOGLOBIN 29.7 pg (27.0-33.4); MEAN CORPUSCULAR HGB CONC 33.7 g/dL (32.0-36.0); MEAN CORPUSCULAR VOLUME 88 fl (80-97); MONOCYTES % (AUTO) 9.9 % (3-13); RED BLOOD COUNT 3.93 10^6/uL (4.35-5.55); RED CELL DISTRIBUTION WIDTH 14.4 % (11.5-14.0); SEGMENTED NEUTROPHILS % (AUTO) 77.3 % (42-78); WHITE BLOOD COUNT 14.1 10^3/uL (4.0-10.5)
[2017-08-19] MEDS ORDERED: ONDANSETRON HCL INJ/PF 4 MG/2 ML SDV ONE (12:17)
[2017-08-19 12:37] LABS: ALANINE AMINOTRANSFERASE 38 U/L (21-72); ALBUMIN 3.9 g/dL (3.5-5.0); ALKALINE PHOSPHATASE 98 U/L (38-126); ANION GAP 11 (5-19); ASPARTATE AMINO TRANSFERASE 31 U/L (17-59); BILIRUBIN,DIRECT 0.3 mg/dL (0.0-0.4); BILIRUBIN,TOTAL 0.4 mg/dL (0.2-1.3); BLOOD UREA NITROGEN 25 mg/dL (7-20); CALCIUM 9.4 mg/dL (8.4-10.2); CARBON DIOXIDE 25 mmol/L (22-30); CHLORIDE 104 mmol/L (98-107); CREATININE RESULT 0.96 mg/dL (0.52-1.25); GLUCOSE 118 mg/dL (75-110); SODIUM 139.7 mmol/L (137-145); TOTAL PROTEIN 7.2 g/dL (6.3-8.2)
--- NOTE | 2017-08-19 12:47 | RADIOLOGY REPORT (SQ) ---
EXAM DESCRIPTION: CHEST SINGLE VIEW COMPLETED DATE/TIME: 08/19/2017 12:32 pm REASON FOR STUDY: post ETT COMPARISON: 08/19/2017 EXAM PARAMETERS: NUMBER OF VIEWS: One view. TECHNIQUE: Single frontal radiographic view of the chest acquired. RADIATION DOSE: NA LIMITATIONS: None. FINDINGS: LUNGS AND PLEURA: Total infiltrate on the right. There is re-expansion of left lung with limited opacification laterally. MEDIASTINUM AND HILAR STRUCTURES: No masses. Contour normal. HEART AND VASCULAR STRUCTURES: Heart normal in size. Normal vasculature. BONES: No acute findings. HARDWARE: A thoracotomy tube is in place on the left. Pacemaker is present. OTHER: No other significant finding. IMPRESSION: The left lung is re-expanded. There may be limited atelectasis. Thoracotomy tube in po sition. TECHNICAL DOCUMENTATION: JOB ID: [id number] [employer]- All Rights Reserved
[2017-08-19 12:52] LABS: PROTHROMBIN TIME 13.8 SEC (11.4-15.4)
[2017-08-19 12:53] LABS: PARTIAL THROMBOPLASTIN TIME 34.7 SEC (23.5-35.8)
--- NOTE | 2017-08-19 13:48 | Operative Report ---
Operative Report DATE OF SURGERY: 08/19/17 PREOPERATIVE DIAGNOSIS: Recurrent left-sided pneumothorax POSTOPERATIVE DIAGNOSIS: Same OPERATION: Left tube thoracostomy SURGEON: TAMI ENRIQUE ANESTHESIA: Other - Ketamine and local TISSUE REMOVED OR ALTERED: None COMPLICATIONS: None ESTIMATED BLOOD LOSS: Minimal INTRAOPERATIVE FINDINGS: Left-sided pneumothorax PROCEDURE: Informed consent was obtained. Procedure was done in the emergency room. Ketamine sedation was performed. Patient's left chest was prepped and draped in the usual sterile fashion. Local anesthetic was administered. Skin incision was made and a tunneling type of tract was made at the anterior axillary line just below the mammary crease. Left thoracic cavity was entered without difficulty with gush of air. 36 chest tube was placed and positioned without difficulty. It was attached to the Pleur-evac and no air leak was evident after the initial suctioning. The chest tube was sutured in place. Dressings were applied. Patient tolerated procedure well with no apparent complications. Stat portable chest x-ray demonstrated good positioning of the chest tube with reexpansion of his lung.
--- NOTE | 2017-08-19 13:53 | PDOC H&P ---
History of Present Illness Admission Date/PCP: 08/19/17 12:48 Patient complains of: Shortness of breath and left chest discomfort History of Present Illness: ANNA RUBIN is a 77 year old male status post spontaneous pneumothorax about a week ago status post chest tube placement and hospitalization. He was discharged home several days ago without any problems. But today he developed sudden onset of shortness of breath and left-sided chest discomfort and probably came into the emergency room where he was noted with a complete left pneumothorax. Hemodynamically stable. Patient has a history of COPD. No prior episodes of pneumothorax other than the one last week. Past Medical History Cardiac Medical History: Reports: Hyperlipidema, Hypertension Pulmonary Medical History: Reports: Chronic Obstructive Pulmonary Disease (COPD) Neurological Medical History: Denies: Seizures Endocrine Medical History: Denies: Diabetes Mellitus Type 1 Malignancy Medical History: Reports: Colorectal Cancer GI Medical History: Denies: Crohn's Disease, Ulcerative Colitis Musculoskeltal Medical History: Reports: Gout Traumatic Medical History: Reports: Pneumothorax Denies: Traumatic Brain Injury Hematology: Reports: Sickle Cell Disease Past Surgical History Past Surgical History: Reports: Pacemaker Social History Lives with: Family Smoking Status: Never Smoker Frequency of Alcohol Use: Occasional Hx Recreational Drug Use: No Hx Prescription Drug Abuse: No Family History Family History: Reviewed & Not Pertinent, DM, Hypertension Parental Family History Reviewed: No Children Family History Reviewed: No Sibling(s) Family History Reviewed.: No Medication/Allergy Allergies/Adverse Reactions: codeine [Codeine] Allergy (Verified 08/13/17 20:43) Physical Exam Vital Signs: Temp Pulse Resp BP Pulse Ox 22 H 133/80 H 98 08/19/17 12:51 08/19/17 12:51 08/19/17 12:51 General appearance: PRESENT: no acute distress, cooperative Neck exam: PRESENT: other - Supple with no tenderness. Respiratory exam: PRESENT: other - No breath sounds on the left. Clear breath sounds on the right. Trachea midline. No crepitus. Left sided lateral chest wound clean dry and intact. Cardiovascular exam: PRESENT: RRR Neurological exam: PRESENT: alert, awake Psychiatric exam: PRESENT: appropriate affect Skin exam: PRESENT: warm Results Impressions: Chest X-Ray 08/19/17 00:00 IMPRESSION: The left lung is re-expanded. There may be limited atelectasis. Thoracotomy tube in position. Assessment & Plan - Diagnosis (1) Recurrent spontaneous pneumothorax Is this a current diagnosis for this admission?: Yes Plan: Recurrent left-sided spontaneous pneumothorax. Informed consent was obtained and left-sided tube thoracostomy was performed. Patient had good response with insufflation of his lung. Patient tolerated procedure well. Will admit the patient to the hospital. Will consider pleurodesis during this hospitalization. Keep the chest tube to suction for now.
[2017-08-19] MEDS ORDERED: OXYCODONE-ACETAMINOPHEN 5-325 MG TABLET ONE (16:02)
[2017-08-19] MEDS: OXYCODONE-ACETAMINOPHEN 5-325 MG TABLET PO PRN (22:04)
[2017-08-19] MEDS: METOPROLOL SUCCINATE 50 MG TAB.SR.24H PO SCH (22:04)
[2017-08-20] MEDS: OXYCODONE-ACETAMINOPHEN 5-325 MG TABLET PO PRN ×5 (02:43→18:47)
--- NOTE | 2017-08-20 09:39 | RADIOLOGY REPORT (SQ) ---
EXAM DESCRIPTION: CHEST SINGLE VIEW COMPLETED DATE/TIME: 08/20/2017 9:03 am REASON FOR STUDY: f/u ptx COMPARISON: 08/19/2017. CT chest 08/13/2017. FINDINGS: Single-view portable upright chest timed approximately 0849 hours. Left chest tube to the apex remains in place. Discrete pneumothorax not appreciated. Scarring in th e left lung, as before. Right lung clear. Stable cardiomediastinal silhouette. Pacer remains in place. IMPRESSION: Chest tube remains to the left apex. No large pneumothorax detected. TECHNICAL DOCUMENTATION: JOB ID: [id number]
[2017-08-20] MEDS: METOPROLOL SUCCINATE 50 MG TAB.SR.24H PO SCH ×2 (09:46→21:51)
[2017-08-20] MEDS: ASPIRIN 81 MG TABLET, CHEWABLE PO SCH (09:46)
[2017-08-20] MEDS: CHLORTHALIDONE 25 MG TABLET PO SCH (09:46)
[2017-08-20] MEDS: LISINOPRIL 10 MG TABLET PO SCH (09:47)
[2017-08-20] MEDS: ENOXAPARIN SODIUM INJ 40 MG/0.4 ML DISP.SYRIN SUBCUT SCH (09:48)
[2017-08-20] MEDS ORDERED: (PENDING PHARMACY ID) (Umeclidinium Brm/Vilanterol Tr [Anoro Ellipta 62.5-25 Mcg Inh] 1 EA IH SCH (10:00)
--- NOTE | 2017-08-20 17:55 | PDOC PROGRESS REPORT ---
Subjective Progress Note for:: 08/20/17 Subjective:: mild left chest pain at the chest tube site. Reason For Visit: RECURRENT LEFT PNEUMOTHRAX Physical Exam Vital Signs: Temp Pulse Resp BP Pulse Ox 98.2 F 68 16 100/58 L 92 08/20/17 15:55 08/20/17 15:55 08/20/17 15:55 08/20/17 15:55 08/20/17 15:55 Intake & Output 08/19/17 08/20/17 08/21/17 06:59 06:59 06:59 Intake Total 765 433 Output Total 450 Balance 765 -17 Weight 57.7 kg Exam: no air leak. D/C chest tube tomorrow if CXR shows continued well expanded left lung. May need VATS surgery to keep left lung plastered to chest wall to prevent recurrence. Results Impressions: Chest X-Ray 08/20/17 07:00 IMPRESSION: Chest tube remains to the left apex. No large pneumothorax detected.
[2017-08-21] MEDS: OXYCODONE-ACETAMINOPHEN 5-325 MG TABLET PO PRN ×5 (01:35→23:32)
--- NOTE | 2017-08-21 08:33 | RADIOLOGY REPORT (SQ) ---
EXAM DESCRIPTION: CHEST PA/LAT COMPLETED DATE/TIME: 08/20/2017 7:01 pm REASON FOR STUDY: follow up of left pneumothorax post chest tube vasquez COMPARISON: 08/20/2017. TECHNIQUE: Frontal and lateral radiographic views of the chest acquired. NUMBER OF VIEWS: Two view. LIMITATIONS: None. FINDINGS: LUNGS AND PLEURA: Minimal patchy left basilar opacity, unchanged. No significant pleural fluid or pneumothorax. MEDIASTINUM AND HILAR STRUCTURES: Stable contours. HEART AND VASCULAR STRUCTURES: Normal heart size without evidence of failure. BONES: No acute findings. HARDWARE: Left pacer intact. Left chest tube in place as before. OTHER: No other significant finding. IMPRESSION: 1. Left chest tube in place. No significant pneumothorax. Stable chest. TECHNICAL DOCUMENTATION: JOB ID: [id number] [employer]- All Rights Reserved
[2017-08-21] MEDS: CHLORTHALIDONE 25 MG TABLET PO SCH (09:49)
[2017-08-21] MEDS: LISINOPRIL 10 MG TABLET PO SCH (09:49)
[2017-08-21] MEDS: METOPROLOL SUCCINATE 50 MG TAB.SR.24H PO SCH ×2 (09:49→21:07)
[2017-08-21] MEDS: ASPIRIN 81 MG TABLET, CHEWABLE PO SCH (09:49)
[2017-08-21] MEDS: ENOXAPARIN SODIUM INJ 40 MG/0.4 ML DISP.SYRIN SUBCUT SCH (09:50)
[2017-08-21] MEDS ORDERED: DOCUSATE SODIUM 100 MG CAPSULE PO ONE (11:00)
--- NOTE | 2017-08-21 11:33 | PDOC PROGRESS REPORT ---
Subjective Progress Note for:: 08/21/17 Reason For Visit: RECURRENT LEFT PNEUMOTHRAX Patient has no complaints, no shortness of breath no chest pain Physical Exam Vital Signs: Temp Pulse Resp BP Pulse Ox 98.7 F 83 20 103/59 L 92 08/21/17 07:23 08/21/17 07:23 08/21/17 07:23 08/21/17 07:23 08/21/17 07:23 Intake & Output 08/20/17 08/21/17 08/22/17 06:59 06:59 06:59 Intake Total 765 798 Output Total 950 Balance 765 -152 Weight 57.7 kg 57 kg General appearance: PRESENT: no acute distress Respiratory exam: PRESENT: other - Breath sounds are distant but present bilaterally; no fluctuation or air leak in chamber B Results Impressions: Chest X-Ray 08/20/17 18:00 IMPRESSION: 1. Left chest tube in place. No significant pneumothorax. Stable chest. Assessment & Plan - Diagnosis (1) Pneumothorax Qualifiers: Pneumothorax type: unspecified pneumothorax Qualified Code(s): J93.9 - Pneumothorax, unspecified Is this a current diagnosis for this admission?: Yes Plan: Recommendations: 1. Place chest tube to waterseal; 2. Discuss role of VATS procedure for patient, possibly next Wednesday by Dr. Quinones. We will review CT scan to ensure no evidence of current left thoracic pathology other than emphysematous bleb disease.
[2017-08-21] MEDS: DOCUSATE SODIUM 100 MG CAPSULE PO SCH ×2 (17:08)
[2017-08-22] MEDS: OXYCODONE-ACETAMINOPHEN 5-325 MG TABLET PO PRN ×5 (04:10→21:56)
[2017-08-22] MEDS: ENOXAPARIN SODIUM INJ 40 MG/0.4 ML DISP.SYRIN SUBCUT SCH (09:35)
[2017-08-22] MEDS: ASPIRIN 81 MG TABLET, CHEWABLE PO SCH (09:35)
[2017-08-22] MEDS: CHLORTHALIDONE 25 MG TABLET PO SCH (09:36)
[2017-08-22] MEDS: LISINOPRIL 10 MG TABLET PO SCH (09:36)
[2017-08-22] MEDS: DOCUSATE SODIUM 100 MG CAPSULE PO SCH ×4 (09:36→17:05)
[2017-08-22] MEDS: METOPROLOL SUCCINATE 50 MG TAB.SR.24H PO SCH (09:36)
--- NOTE | 2017-08-22 11:13 | PDOC PROGRESS REPORT ---
Subjective Progress Note for:: 08/22/17 Reason For Visit: RECURRENT LEFT PNEUMOTHRAX Patient has no complaints; breathing fine with chest tube off suction. Physical Exam Vital Signs: Temp Pulse Resp BP Pulse Ox 99.0 F 86 18 127/71 H 94 08/22/17 07:41 08/22/17 07:41 08/22/17 07:41 08/22/17 07:41 08/22/17 07:41 Intake & Output 08/21/17 08/22/17 08/23/17 06:59 06:59 06:59 Intake Total 798 1150 Output Total 950 1000 Balance -152 150 Weight 57 kg 61.4 kg General appearance: PRESENT: no acute distress Respiratory exam: PRESENT: other - No fluctuation in waterseal in chest tube chamber; no subcu air Results Impressions: Chest X-Ray 08/20/17 18:00 IMPRESSION: 1. Left chest tube in place. No significant pneumothorax. Stable chest. 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 Plan: 1. Chest tube dressing changes 2. Get patient up and moving; we will start Colace stool softener 3. Explained to patient will review equipment status tomorrow to determine whether VATS procedure can be performed in our operating room. Patient expressed understanding and agrees.
[2017-08-23] MEDS: METOPROLOL SUCCINATE 50 MG TAB.SR.24H PO SCH ×2 (00:23→08:47)
[2017-08-23] MEDS: OXYCODONE-ACETAMINOPHEN 5-325 MG TABLET PO PRN ×2 (03:41→09:30)
[2017-08-23] MEDS: LISINOPRIL 10 MG TABLET PO SCH (08:47)
[2017-08-23] MEDS: CHLORTHALIDONE 25 MG TABLET PO SCH (08:47)
[2017-08-23] MEDS: ENOXAPARIN SODIUM INJ 40 MG/0.4 ML DISP.SYRIN SUBCUT SCH (09:25)
[2017-08-23] MEDS: DOCUSATE SODIUM 100 MG CAPSULE PO SCH ×2 (09:31→09:32)
[2017-08-23] MEDS: ASPIRIN 81 MG TABLET, CHEWABLE PO SCH (09:32)
[2017-08-23] MEDS ORDERED: MORPHINE SULFATE 10 MG/ML INJ ONE (14:38)
--- NOTE | 2017-08-23 15:43 | RADIOLOGY REPORT (SQ) ---
EXAM DESCRIPTION: CHEST SINGLE VIEW COMPLETED DATE/TIME: 08/23/2017 3:11 pm REASON FOR STUDY: chest tube removal COMPARISON: 08/20/2017. EXAM PARAMETERS: NUMBER OF VIEWS: One view. TECHNIQUE: Single frontal radiographic view of the chest acquired. RADIATION DOSE: NA LIMITATIONS: None. FINDINGS: LUNGS AND PLEURA: Generally improved aeration. Probable mild scarring. No opacities, mas ses or pneumothorax. No pleural effusion. MEDIASTINUM AND HILAR STRUCTURES: No masses. Contour normal. HEART AND VASCULAR STRUCTURES: Heart normal in size. Normal vasculature. BONES: No acute findings. HARDWARE: Pacemaker. The left chest tube has been removed. OTHER: No other significant finding. IMPRESSION: NO PNEUMOTHORAX OR OTHER FINDINGS FOLLOWING CHEST TUBE REMOVAL. NO ACUTE RADIOGRAPHIC F INDING IN THE CHEST. TECHNICAL DOCUMENTATION: JOB ID: [id number] [employer]- All Rights Reserved
[2017-08-23 16:30] VITALS: BP 110/60
--- NOTE | 2017-08-23 21:18 | DISCHARGE SUMMARY E ---
Discharge Summary NAME: ANNA RUBIN : 1940 AGE: 77Y ADMITTED: 08/19/2017 DISCHARGED: 08/23/2017 FINAL DIAGNOSES: 1. Recurrent left pneumothorax. 2. COPD. HOSPITAL COURSE: The patient admitted on 08/19/17 for shortness of breath and complete left recurrent pneumothorax. A chest tube was inserted by Dr. Jeter on admission. Chest x-ray was done the next day and showed the lung to be completely reexpanded. Arrangements for possible thoracoscopic surgery for pleurodesis was attempted but unable to get all the equipments while the patient is in the hospital. I then called [facility] and arranged for possible VATS pleurodesis surgery. In the meantime the left chest tube was removed and chest x-ray showed no recurrent pneumothorax or the left lung maintained to be completely expanded. The patient was discharged improved. The patient will wait for a call from [facility] after they evaluate all his records. The patient did not require any pain medications after removal of the chest tube. The patient did have first episode of left pneumothorax about 2-1/2 weeks ago. DICTATING PHYSICIAN: REANNA RODAS M.D. [id number] PHY#: [id number] ID: [id number] JOB#: [id number] ACCT: [id number] cc:REANNA RODAS M.D. >
== END 2017-08-23 16:45 | disposition home or self-care (01) | DRG 201 ==
LOC: ER 11:45 → EH 12:48 → 5 14:54
PROVIDERS: ATTEND Surgery
PROC: 0W9B30Z Drainage of Left Pleural Cavity with Drainage Device, Percutaneous Approach (ICD-10-PCS; principal; 2017-08-19)
DX: J93.83 Other pneumothorax (principal); J44.9 Chronic obstructive pulmonary disease, unspecified; M10.9 Gout, unspecified; I10 Essential (primary) hypertension; E78.5 Hyperlipidemia, unspecified; Z85.038 Personal history of other malignant neoplasm of large intestine; Z95.0 Presence of cardiac pacemaker; Z82.49 Family history of ischemic heart disease and other diseases of the circulatory system; Z83.3 Family history of diabetes mellitus; Z88.6 Allergy status to analgesic agent; Z79.899 Other long term (current) drug therapy; Z79.82 Long term (current) use of aspirin
CPT/HCPCS: 36415; 71010; 71020; 80053; 85025; 85610; 85730; 87070; 87077; 87205; 96374; 99291; J1650; J2270; J2405; J3490

== ENCOUNTER → 2017-08-26 | Outpatient (CLI) | payer MEDICARE, MEDICAID ==
--- NOTE | 2017-08-26 13:15 | RADIOLOGY REPORT (SQ) ---
EXAM DESCRIPTION: CHEST PA/LATERAL COMPLETED DATE/TIME: 08/26/2017 11:07 am REASON FOR STUDY: OTHER PNEUMOTHORAX COMPARISON: CT chest 08/13/2017 Chest films 08/20/2017, 08/23/2017 EXAM PARAMETERS: NUMBER OF VIEWS: two views TECHNIQUE: Digital Frontal and Lateral radiographic views of the chest acquired. RADIATION DOSE: NA LIMITATIONS: none FINDINGS: LUNGS AND PLEURA: No pneumothorax. Bulla or bleb in the lateral aspect of the left upper lobes unchanged from prior studies. Lungs are hyperinflated and hyperlucent but clear. No pleural effusion. No pulmonary nodules. MEDIASTINUM AND HILAR STRUCTURES: No masses or contour abnormalities. HEART AND VASCULAR STRUCTURES: Heart normal size. No evidence for failure. BONES: No acute findings. HARDWARE: Left-sided pacemaker unchanged OTHER: No other significant finding. IMPRESSION: Obstructive lung disease. No pneumothorax TECHNICAL DOCUMENTATION: JOB ID: [id number] 1989 [employer]- All Rights Reserved
== END ==
LOC: OD 10:47
PROVIDERS: ATTEND Physician Assistant Surgical
DX: J93.83 Other pneumothorax (principal)
CPT/HCPCS: 71020

== ENCOUNTER 2020-06-13 18:10 | Inpatient (IN) | payer MEDICARE, MEDICAID ==
[2020-06-13 18:43] LABS: HEMATOCRIT 33.2 % (37.9-51.0); HEMOGLOBIN 11.2 g/dL (13.5-17.0); MEAN CORPUSCULAR HEMOGLOBIN 29.1 pg (27.0-33.4); MEAN CORPUSCULAR HGB CONC 33.6 g/dL (32.0-36.0); MEAN CORPUSCULAR VOLUME 87 fl (80-97); PLATELET COUNT 277 10^3/uL (150-450); RED BLOOD COUNT 3.83 10^6/uL (4.35-5.55); RED CELL DISTRIBUTION WIDTH 15.8 % (11.5-14.0); WHITE BLOOD COUNT 11.5 10^3/uL (4.0-10.5)
--- NOTE | 2020-06-13 18:52 | RADIOLOGY REPORT (SQ) ---
EXAM DESCRIPTION: CHEST SINGLE VIEW IMAGES COMPLETED DATE/TIME: 06/13/2020 6:35 pm REASON FOR STUDY: sob COMPARISON: 08/20/2017 TECHNIQUE: Single frontal radiographic view of the chest acquired. NUMBER OF VIEWS: One view. LIMITATIONS: None. FINDINGS: LUNGS AND PLEURA: No pneumothorax. Increased Left parahilar consolidation -nodularity and peripheral increased interstitial thickening. No Pleural effusion. MEDIASTINUM AND HILAR STRUCTURES: Stable. HEART AND VASCULAR STRUCTURES: Stable. BONES: No acute findings. HARDWARE: Cardiac pacer. OTHER: No other significant finding. IMPRESSION: Increased Left parahilar consolidation -nodularity and peripheral increased interstitial thickening. TECHNICAL DOCUMENTATION: JOB ID: [id number] 2010 [employer]- All Rights Reserved Reading location - IP/workstation name: [employer]
[2020-06-13 18:56] LABS: ALBUMIN 3.1 g/dL (3.5-5.0); ALKALINE PHOSPHATASE 170 U/L (38-126); ANION GAP 9 (5-19); ASPARTATE AMINO TRANSFERASE 26 U/L (17-59); BILIRUBIN,DIRECT 0.3 mg/dL (0.0-0.4); BILIRUBIN,TOTAL 0.7 mg/dL (0.2-1.3); BLOOD UREA NITROGEN 38 mg/dL (7-20); CALCIUM 9.5 mg/dL (8.4-10.2); CARBON DIOXIDE 21 mmol/L (22-30); CHLORIDE 105 mmol/L (98-107); CREATINE KINASE 40 U/L (55-170); GLUCOSE 108 mg/dL (75-110); POTASSIUM 4.6 mmol/L (3.6-5.0); TOTAL PROTEIN 6.5 g/dL (6.3-8.2)
[2020-06-13 19:09] LABS: TROPONIN I < 0.012 ng/mL
[2020-06-13 19:17] LABS: ABSOLUTE LYMPHOCYTES# (MANUAL) 0.5 10^3/uL (0.5-4.7); ABSOLUTE MONOCYTES # (MANUAL) 0.6 10^3/uL (0.1-1.4); BASOPHILS % (MANUAL) 0 % (0-2); EOSINOPHILS % (MANUAL) 0 % (0-6); LYMPHOCYTES % (MANUAL) 4 % (13-45); MONOCYTES % (MANUAL) 5 % (3-13); SEGMENTED NEUTROPHILS % (MAN) 91 % (42-78); TOTAL CELLS COUNTED 100
[2020-06-13 19:18] LABS: ANISOCYTOSIS SLIGHT; OVALOCYTES SLIGHT; PLATELET COMMENT ADEQUATE
--- NOTE | 2020-06-13 19:22 | EKG REPORT ---
SEVERITY:- ABNORMAL ECG - SINUS TACHYCARDIA LEFT ANTERIOR FASCICULAR BLOCK : Confirmed by: Macie Hamlin MD 13-Jun-2020 19:21:08
--- NOTE | 2020-06-13 20:16 | ER Document Report ---
ED General - General Chief Complaint: Chest Pain Stated Complaint: LIGHT HEADED Time Seen by Provider: 06/13/20 18:32 Primary Care Provider: ALETHA GA PA-C [Primary Care Provider] - Follow up as needed TRAVEL OUTSIDE OF THE [place] 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 EMS was called when they arrived they found this man in SVT with a heart rate approximately 220 and a blood pressure of 60 over palp. EMS crew performed synchronized DC cardioversion and brought him back to a sinus tachycardia. He complains of some slight soreness of his chest from the cardioversion procedure but otherwise has no other complaints and feels he is back to his usual baseline. He denies nausea, vomiting, diaphoresis. He was mildly short of breath during the episode but is breathing normally at this time. He does have a history of fairly severe COPD. - Related Data Allergies/Adverse Reactions: codeine [Codeine] Allergy (Verified 08/13/17 20:43) ketamine Adverse Reaction (Verified 08/23/17 13:03) Hallucinations Past Medical History - General Information source: Patient, [facility] Records - Social History Smoking Status: Former Smoker Family History: Reviewed & Not Pertinent, DM, Hypertension - Past Medical History Cardiac Medical History: Reports: Hx Hypercholesterolemia, Hx Hypertension Pulmonary Medical History: Reports: Hx COPD Neurological Medical History: Denies: Hx Seizures Endocrine Medical History: Denies: Hx Diabetes Mellitus Type 1 Renal/ Medical History: Denies: Hx Peritoneal Dialysis Malignancy Medical History: Reports Hx Colorectal Cancer GI Medical History: Denies: Hx Crohn's Disease, Hx Ulcerative Colitis Musculoskeletal Medical History: Reports Hx Gout Traumatic Medical History: Reports: Hx Pneumothorax. Denies: Hx Traumatic Brain Injury Past Surgical History: Reports: Hx Cardiac Surgery - pace maker, Hx Pacemaker - Immunizations Hx Diphtheria, Pertussis, Tetanus Vaccination: Yes Review of Systems - Review of Systems Notes: Constitutional: Negative for fever. HENT: Negative for sore throat. Eyes: Negative for visual changes. Cardiovascular: As per HPI. Respiratory: As per HPI. Gastrointestinal: Negative for abdominal pain, vomiting or diarrhea. Genitourinary: Negative for dysuria. Musculoskeletal: Negative for back pain. Skin: Negative for rash. Neurological: Negative for headaches, focal weakness or numbness. 10 point ROS negative except as marked above and in HPI. Physical Exam - Vital signs Vitals: Resp BP Pulse Ox 18 104/75 99 06/13/20 18:21 06/13/20 18:21 06/13/20 18:21 - Notes Notes: GENERAL: Elderly man currently appearing in no acute distress. SKIN: Good turgor no rashes. HEAD: Normocephalic atraumatic. EYES: PERRLA. EOMI. Conjunctivae and sclerae clear. EARS: CANALS AND TMS CLEAR. NOSE: CLEAR. MOUTH: Moist mucosa. Good dentition. No stridor or edema. No drooling. NECK: Supple. No masses or thyromegaly. No adenopathy. Carotids 2+ without bruits. No JVD. BACK: Symmetrical without tenderness. CHEST: Respirations unlabored. Scattered faint rhonchi bilaterally clearing with cough. HEART: Tachycardic regular rhythm. Tachycardia on monitor with a rate of 115. No murmur gallop or rub. ABDOMEN: Soft nontender without masses, organomegaly or rebound. Bowel sounds normally active. No bruits. GENITALIA: Deferred. EXTREMITIES: No edema. No calf tenderness. Cap refill less than 1.5 seconds. Dorsalis pedis and posterior tibial pulses 3+ and symmetrical. NEUROLOGICAL: GCS 15. Alert and oriented x3. Normal gait. Fluent speech. Cranial nerves II through XII intact. Sensorimotor and cerebellar normal. Normal tone. PSYCHIATRIC: Appropriate affect. Course - Re-evaluation Re-evalutation: 06/13/20 20:42 Patient is remained stable and free of any chest discomfort since arrival here. His initial troponin is normal and his labs are remarkable only for some mild prerenal azotemia. Chest x-ray shows questionable left perihilar infiltrate. I will give him some IV Rocephin and azithromycin. His EKG shows a sinus tachycardia and this is improving with hydration. Case was discussed with on- call hospitalist Dr. Blackmon who will admit. - Vital Signs Vital signs: Temp Pulse Resp BP Pulse Ox 22 H 123/78 97 06/13/20 18:34 06/13/20 18:34 06/13/20 18:33 - Laboratory Result Diagrams: 06/13/20 18:30 06/13/20 18:30 Laboratory results interpreted by me: 06/13/20 06/13/20 18:30 18:30 WBC 11.5 H RBC 3.83 L Hgb 11.2 L Hct 33.2 L RDW 15.8 H Seg Neuts % (Manual) 91 H Lymphocytes % (Manual) 4 L Abs Neuts (Manual) 10.5 H Sodium 135.1 L Carbon Dioxide 21 L BUN 38 H Creatinine 1.72 H Est GFR ( Amer) 47 L Est GFR (MDRD) Non-Af 39 L Alkaline Phosphatase 170 H Creatine Kinase 40 L Albumin 3.1 L - Diagnostic Test Radiology reviewed: Reports reviewed - Chest x-ray per radiologist: Left perihilar infiltrate - EKG Interpretation by Me Additional EKG results interpreted by me: 06/13/20 20:21 Twelve-lead EKG reviewed by me contemporaneously: 1829 hrs. Indication for study: Status post cardioversion for SVT Rhythm: Sinus tachycardia Rate: 117 Intervals: Normal QRS axis: -[address]/T wave changes: None Comparison with prior tracing: Comparison with prior study from 08/15/2017 shows further leftward shift of QRS axis Interpretation: Sinus tachycardia with left anterior fascicular block Discharge - Discharge Clinical Impression: Pneumonia, COPD Condition: Good Disposition: ADMITTED INPATIENT Admitting Provider: Neymar (Hospitalist) Unit Admitted: Telemetry Referrals: ALETHA GA PA-C [Primary Care Provider] - Follow up as needed
[2020-06-13] MEDS ORDERED: AZITHROMYCIN INJ 500 MG VIAL IV ONE ×2 (20:19→22:45)
[2020-06-13] MEDS ORDERED: CEFTRIAXONE INJ 1000 MG VIAL IV ONE (20:19)
[2020-06-13] MEDS ORDERED: LEVALBUTEROL HCL NEB 1.25 MG/3 ML AMPUL NEB PRN (21:58)
[2020-06-13] MEDS ORDERED: GUAIFENESIN SYRP 200 MG/10 ML UDC PO PRN (21:58)
[2020-06-13] MEDS ORDERED: TRAMADOL HCL 50 MG TABLET PO PRN (22:08)
[2020-06-13] MEDS ORDERED: METOPROLOL TARTRATE 50 MG TABLET PO ONE (22:09)
[2020-06-13] MEDS ORDERED: METOPROLOL TARTRATE PF/INJ 5 MG/5 ML SDV IV PRN (22:13)
--- NOTE | 2020-06-13 22:18 | PDOC H&P ---
History of Present Illness Admission Date/PCP: 06/13/20 21:11 LILY MILNER MD Patient complains of: Rapid heart rate History of Present Illness: ANNA RUBIN is a 80 year old male was found to be in SVT and was defibrillated in the field. He has a history of sick sinus syndrome with pacemaker implant. He has COPD with emphysema and blebs. Is a history of lung cancer with radiation therapy. He is also treated for hypertension and hypercholesterolemia. He is sore from being defibrillated. He is still slightly tachycardic. He will be admitted to telemetry. There is a question of a left-sided pneumonia however this could be scarring from his radiation therapy and COPD with emphysema. I will increase his metoprolol dose. He will continue his other medications. Past Medical History Cardiac Medical History: Reports: Hyperlipidema, Hypertension Pulmonary Medical History: Reports: Chronic Obstructive Pulmonary Disease (COPD) Neurological Medical History: Denies: Seizures Endocrine Medical History: Denies: Diabetes Mellitus Type 1 Malignancy Medical History: Reports: Colorectal Cancer GI Medical History: Denies: Crohn's Disease, Ulcerative Colitis Musculoskeltal Medical History: Reports: Gout Traumatic Medical History: Reports: Pneumothorax Denies: Traumatic Brain Injury Hematology: Reports: Sickle Cell Disease Past Surgical History Past Surgical History: Reports: Pacemaker Social History Information Source: Patient, Outside Facility Records Lives with: Alone Smoking Status: Former Smoker Electronic Cigarette use?: No Frequency of Alcohol Use: None Hx Recreational Drug Use: No Drugs: None Hx Prescription Drug Abuse: No - Advance Directive Resuscitation Status: Do Not Resuscitate Family History Family History: DM, Hypertension Parental Family History Reviewed: Yes Children Family History Reviewed: Yes Sibling(s) Family History Reviewed.: Yes Medication/Allergy Home Medications: Aspirin [Aspirin EC] 81 mg PO DAILY 08/19/17 Lisinopril [Zestril] 20 mg PO DAILY 08/19/17 Metoprolol Tartrate [Lopressor 50 mg Tablet] 50 mg PO Q12 08/19/17 Umeclidinium Brm/Vilanterol Tr [Anoro Ellipta 62.5-25 Mcg INH] 1 puff IH DAILY 08/19/17 Albuterol Sulfate [Ventolin Hfa 8 gm Mdi] 2 puff IH Q4HP PRN 06/13/20 Atorvastatin Calcium [Lipitor 80 mg Tablet] 80 mg PO QHS 06/13/20 Rivaroxaban [Xarelto 2.5 mg Tablet] 2.5 mg PO BID 06/13/20 Tramadol HCl [Ultram] 50 mg PO Q8HP PRN 06/13/20 Levofloxacin [Levaquin 500 mg Tablet] 500 mg PO DAILY #10 tablet 06/14/20 Allergies/Adverse Reactions: codeine [Codeine] Allergy (Verified 08/13/17 20:43) ketamine Adverse Reaction (Verified 08/23/17 13:03) Hallucinations Review of Systems All systems: reviewed and no additional remarkable complaints except as stated Constitutional: PRESENT: fatigue, fever(s), night sweats Psychiatric: PRESENT: anxiety - About remaining in the hospital Physical Exam Vital Signs: Temp Pulse Resp BP Pulse Ox 22 H 123/78 97 06/13/20 18:34 06/13/20 18:34 06/13/20 18:33 General appearance: PRESENT: cooperative, mild distress, well-developed, well- nourished Head exam: PRESENT: atraumatic, normocephalic Eye exam: PRESENT: conjunctiva pink, EOMI, PERRLA. ABSENT: scleral icterus Ear exam: PRESENT: normal external ear exam. ABSENT: bleeding, drainage Mouth exam: PRESENT: moist, neck supple, tongue midline Teeth exam: PRESENT: poor dentation Throat exam: ABSENT: post pharyngeal erythema, tonsillar exudate Neck exam: PRESENT: full ROM. ABSENT: carotid bruit, JVD, lymphadenopathy, tenderness, tracheostomy Respiratory exam: PRESENT: clear to auscultation teofilo, prolonged expiratory phas, symmetrical, unlabored. ABSENT: rales, rhonchi, tachypnea, wheezes Cardiovascular exam: PRESENT: +S1, +S2, tachycardia. ABSENT: bradycardia, diastolic murmur, irregular rhythm, systolic murmur Pulses: PRESENT: normal radial pulses, normal dorsalis pedis pul GI/Abdominal exam: PRESENT: normal bowel sounds, soft. ABSENT: distended, guarding, mass, tenderness Rectal exam: PRESENT: deferred Gentrourinary exam: ABSENT: indwelling catheter Extremities exam: PRESENT: full ROM. ABSENT: pedal edema Musculoskeletal exam: PRESENT: ambulatory, normal inspection. ABSENT: deformit y, dislocation Neurological exam: PRESENT: alert, awake, oriented to person, oriented to place, oriented to time, oriented to situation, CN II-XII grossly intact. ABSENT: alt ered, motor sensory deficit Psychiatric exam: PRESENT: anxious, appropriate affect. ABSENT: agitated Focused psych exam: ABSENT: delusional, paranoid, restlessness Skin exam: PRESENT: dry, normal color, warm. ABSENT: rash Results Laboratory Results: 06/13/20 18:30 06/13/20 18:30 06/13/20 06/13/20 06/13/20 18:30 18:30 18:30 WBC 11.5 H RBC 3.83 L Hgb 11.2 L Hct 33.2 L MCV 87 MCH 29.1 MCHC 33.6 RDW 15.8 H Plt Count 277 Seg Neutrophils % Not Reportable Sodium 135.1 L Potassium 4.6 Chloride 105 Carbon Dioxide 21 L Anion Gap 9 BUN 38 H Creatinine 1.72 H Est GFR ( Amer) 47 L Glucose 108 Calcium 9.5 Total Bilirubin 0.7 AST 26 Alkaline Phosphatase 170 H Total Protein 6.5 Albumin 3.1 L TSH 1.12 06/13/20 06/13/20 18:30 18:30 Creatine Kinase 40 L CK-MB (CK-2) 0.50 Troponin I < 0.012 Impressions: Chest X-Ray 06/13/20 18:20 IMPRESSION: Increased Left parahilar consolidation -nodularity and peripheral increased interstitial thickening. Assessment and Plan - Diagnosis (1) Supraventricular tachycardia, paroxysmal Is this a current diagnosis for this admission?: Yes Plan: Monitor on telemetry. Increase beta-harpreet. (2) Pneumonia involving left lung Qualifiers: Pneumonia type: due to unspecified organism Lung location: unspecified part of lung Qualified Code(s): J18.9 - Pneumonia, unspecified organism Is this a current diagnosis for this admission?: Yes Plan: Continue antibiotics at this time. Monitor white blood cell count and respiratory function. (3) COPD (chronic obstructive pulmonary disease) Qualifiers: COPD type: emphysema Emphysema type: panlobular Qualified Code(s): J43.1 - Panlobular emphysema Is this a current diagnosis for this admission?: Yes Plan: Substitute Brio for Anoro.. As needed treatments available as well. (4) Sick sinus syndrome Is this a current diagnosis for this admission?: Yes Plan: Pacemaker was interrogated. No abnormalities noted. (5) Hypertension Qualifiers: Hypertension type: essential hypertension Qualified Code(s): I10 - Essential (primary) hypertension Is this a current diagnosis for this admission?: Yes Plan: Continue current medications with the addition of the increased metoprolol (6) Hypercholesterolemia Is this a current diagnosis for this admission?: Yes Plan: Continue statin therapy (7) Coronary artery disease Qualifiers: Coronary Disease-Associated Artery/Lesion type: [place] artery Associated angina: without angina Is this a current diagnosis for this admission?: Yes Plan: Continue current regimen. No further chest pain chest tachycardia. (8) Weight loss, unintentional Is this a current diagnosis for this admission?: Yes Plan: Defer to primary care provider for ongoing planning. I did tell him to increase his Ensure to 3 times a day. - Plan Summary Summary: 80-year-old male with history of sick sinus syndrome with a cardiac pacemaker complained of lightheadedness and difficulty in walking. EMS was called found to be in SVT with heart rate around 220 and EMS performed a synchronized DC cardioversion. He was admitted with tachycardia. No acute events during the hospital stay. Heart rate is around 70s since admission. Patient is comfortably in the bed communicating well expressing desire to go home today and he said he is willing to follow-up with Dr. Mikey abrams next week for further management. - Time Time Spent with patient: 35 or more minutes Smoking Cessation Education: 3 to 10 minutes Medications reviewed and adjusted accordingly: Yes Anticipated Discharge Disposition: Home, Self Care Anticipated Discharge Timeframe: within 72 hours - Inpatient Certification Based on my medical assessment, after consideration of the patient's comorbidities, presenting symptoms, or acuity I expect that the services needed warrant INPATIENT care.: Yes I certify that my determination is in accordance with my understanding of Medicare's requirements for reasonable and necessary INPATIENT services [42 CFR 412.3e].: Yes Medical Necessity: Need For IV Fluids, Need For Continuous Telemetry Monitoring, Need for IV Antibiotics Post Hospital Care: D/C or Transfer Summary
--- NOTE | 2020-06-13 22:24 | ADVANCED CARE ---
- Diagnosis (1) Supraventricular tachycardia, paroxysmal Diagnosis Current: Yes (2) Pneumonia involving left lung Diagnosis Current: Yes (3) COPD (chronic obstructive pulmonary disease) Diagnosis Current: Yes (4) Sick sinus syndrome Diagnosis Current: Yes (5) Hypertension Diagnosis Current: Yes (6) Hypercholesterolemia Diagnosis Current: Yes (7) Coronary artery disease Diagnosis Current: Yes (8) Weight loss, unintentional Diagnosis Current: Yes Attendance: Discussion occurred at the bedside with the patient Resuscitation Status: Do Not Resuscitate Discussion: Explained to the patient the differences between full code, DNR and comfort measures. With the understanding that full and aggressive treatment will take place even with a DNR CODE STATUS he elected to be DO NOT RESUSCITATE. He did this because he is mostly interested in quality of life. With his history of pacemaker implant, coronary artery disease, lung cancer and COPD he realizes that if a medical catastrophic event occurs his recovery will likely be limited if he survives. His focus is on quality since he watched his previous from cancer with a poor quality of life for 10 years. Care Planning Goals: To achieve the best quality of life that he can. Document(s) Completed: None Time Spent: 20 minutes
[2020-06-13] MEDS ORDERED: ONDANSETRON HCL INJ/PF 4 MG/2 ML SDV IV PRN (22:27)
[2020-06-13] MEDS ORDERED: RIVAROXABAN 2.5 MG TABLET PO ONE (22:30)
[2020-06-13] MEDS ORDERED: GABAPENTIN 100 MG CAPSULE PO ONE (23:00)
[2020-06-14] MEDS ORDERED: METOPROLOL TARTRATE 50 MG TABLET PO ONE (00:45)
[2020-06-14] MEDS ORDERED: RIVAROXABAN 2.5 MG TABLET PO ONE (00:45)
[2020-06-14] MEDS ORDERED: RIVAROXABAN 2.5 MG TABLET ONE (01:14)
[2020-06-14] MEDS: RINGERS SOLUTION,LACTATED 1,000 ML IV PRN ×2 (01:19→12:10)
[2020-06-14 05:02] VITALS: BP 133/71
[2020-06-14 05:38] LABS: ABSOLUTE LYMPHOCYTES (AUTO) 0.9 10^3/uL (0.5-4.7); ABSOLUTE MONOCYTES (AUTO) 1.1 10^3/uL (0.1-1.4); ABSOLUTE NEUT (AUTO) 7.9 10^3/uL (1.7-8.2); BASOPHILS % (AUTO) 0.3 % (0-2); EOSINOPHILS % (AUTO) 0.1 % (0-6); HEMATOCRIT 31.7 % (37.9-51.0); HEMOGLOBIN 10.8 g/dL (13.5-17.0); LYMPHOCYTES % (AUTO) 8.9 % (13-45); MEAN CORPUSCULAR HEMOGLOBIN 29.2 pg (27.0-33.4); MEAN CORPUSCULAR HGB CONC 34.1 g/dL (32.0-36.0); MEAN CORPUSCULAR VOLUME 85 fl (80-97); MONOCYTES % (AUTO) 11.5 % (3-13); PLATELET COUNT 254 10^3/uL (150-450); RED BLOOD COUNT 3.71 10^6/uL (4.35-5.55); SEGMENTED NEUTROPHILS % (AUTO) 79.2 % (42-78); TOTAL CELLS COUNTED % (AUTO) 100 %
[2020-06-14 05:56] LABS: ANION GAP 7 (5-19); BLOOD UREA NITROGEN 39 mg/dL (7-20); CARBON DIOXIDE 23 mmol/L (22-30); CHLORIDE 105 mmol/L (98-107); GLUCOSE 116 mg/dL (75-110); POTASSIUM 4.3 mmol/L (3.6-5.0)
[2020-06-14] MEDS ORDERED: PANTOPRAZOLE SODIUM 40 MG TABLET.DR PO SCH (06:00)
[2020-06-14 06:15] LABS: APPEARANCE,URINE SLIGHTLY-CLOUDY; BILIRUBIN,URINE NEGATIVE (NEGATIVE); COLOR,URINE YELLOW; GLUCOSE, URINE NEGATIVE (NEGATIVE); KETONES,URINE NEGATIVE (NEGATIVE); PROTEIN,URINE NEGATIVE (NEGATIVE); URINE SPECIFIC GRAVITY 1.013; UROBILINOGEN,URINE NEGATIVE mg/dL (<2.0)
[2020-06-14] MEDS ORDERED: ASPIRIN 81 MG TABLET, ENT COATED PO SCH (10:00)
[2020-06-14] MEDS ORDERED: RIVAROXABAN 2.5 MG TABLET PO SCH (10:00)
[2020-06-14] MEDS ORDERED: GABAPENTIN 100 MG CAPSULE PO SCH (10:00)
[2020-06-14] MEDS ORDERED: METOPROLOL TARTRATE 50 MG TABLET PO SCH (10:00)
[2020-06-14] MEDS ORDERED: FLUTICASONE/VILANTEROL 200-25 MCG/DOSE IH SCH (10:00)
[2020-06-14] MEDS ORDERED: LISINOPRIL 10 MG TABLET PO SCH (10:00)
[2020-06-14] MEDS ORDERED: INFLUENZA QUAD (6MOS+) 2020-21 VAC 0.5 ML SYR IM ONE (13:45)
--- NOTE | 2020-06-14 14:53 | PDOC DISCHARGE SUMMARY ---
Impression - Admit/DC Date/PCP Admission Date/Primary Care Provider: 06/13/20 21:11 LILY MILNER MD Discharge Date: 06/14/20 - Assessment Summary: 80-year-old male with history of sick sinus syndrome with a cardiac pacemaker complained of lightheadedness and difficulty in walking. EMS was called found to be in SVT with heart rate around 220 and EMS performed a synchronized DC cardioversion. He was admitted with tachycardia. No acute events during the hospital stay. Heart rate is around 70s since admission. Patient is comfortably in the bed communicating well expressing desire to go home today and he said he is willing to follow-up with Dr. Mikey mills next week for further management. - Additional Information Resuscitation Status: Do Not Resuscitate Discharge Diet: Cardiac Discharge Activity: Activity As Tolerated Referrals: ALETHA GA PA-C [ALLIED HEALTH PROFESSIONAL] - Follow up as needed Prescriptions: Levofloxacin [Levaquin 500 mg Tablet] 500 mg PO DAILY #10 tablet Home Medications: Aspirin [Aspirin EC] 81 mg PO DAILY 08/19/17 Lisinopril [Zestril] 20 mg PO DAILY 08/19/17 Metoprolol Tartrate [Lopressor 50 mg Tablet] 50 mg PO Q12 08/19/17 Umeclidinium Brm/Vilanterol Tr [Anoro Ellipta 62.5-25 Mcg INH] 1 puff IH DAILY 08/19/17 Albuterol Sulfate [Ventolin Hfa 8 gm Mdi] 2 puff IH Q4HP PRN 06/13/20 Atorvastatin Calcium [Lipitor 80 mg Tablet] 80 mg PO QHS 06/13/20 Rivaroxaban [Xarelto 2.5 mg Tablet] 2.5 mg PO BID 06/13/20 Tramadol HCl [Ultram] 50 mg PO Q8HP PRN 06/13/20 Levofloxacin [Levaquin 500 mg Tablet] 500 mg PO DAILY #10 tablet 06/14/20 History of Present Illiness History of Present Illness: ANNA RUBIN is a 80 year old male 80 year old male was found to be in SVT and was defibrillated in the field. He has a history of sick sinus syndrome with pacemaker implant. He has COPD with emphysema and blebs. Is a history of lung cancer with radiation therapy. He is also treated for hypertension and hypercholesterolemia. He is sore from being defibrillated. He is still slightly tachycardic. Hospital Course Hospital Course: 80-year-old male with history of sick sinus syndrome with pacemaker, COPD found to be in SVT and was defibrillated on the way to the hospital. He has also history of lung cancer and radiation therapy. His medications are resumed during the hospital stay.is in sinus rhythm and heart rate is around 79. Patient is asymptomatic. Patient is requesting to go home and will follow-up with Dr. Mikey Mills as an outpatient next week. Physical Exam Vital Signs: Temp Pulse Resp BP Pulse Ox 98.5 F 76 16 133/71 H 96 06/14/20 14:33 06/14/20 14:33 06/14/20 14:33 06/14/20 14:33 06/14/20 14:33 Pulse Oximeter Continuous Start: 06/13/20 21:59 Freq: RTQ4 Status: Active Protocol: Document 06/14/20 12:00 [facility] (Rec: 06/14/20 14:31 [facility] [id number]) Pulse Oximetry Assessment Equipment Usage Equipment Standby Continuous SpO2 Machine # 4 Intake & Output 06/13/20 06/14/20 06/15/20 06:59 06:59 06:59 Intake Total 200 1000 Balance 200 1000 Weight 58.3 kg 58.3 kg General appearance: PRESENT: no acute distress, cooperative, well-developed Head exam: PRESENT: atraumatic Eye exam: PRESENT: PERRLA Mouth exam: PRESENT: moist, tongue midline Teeth exam: PRESENT: poor dentation Neck exam: ABSENT: carotid bruit, JVD, lymphadenopathy, thyromegaly Respiratory exam: PRESENT: decreased breath sounds Cardiovascular exam: PRESENT: other - Pacemaker on the left side of the chest GI/Abdominal exam: PRESENT: normal bowel sounds, soft. ABSENT: distended, guarding, mass, organolmegaly, rebound, tenderness Rectal exam: PRESENT: deferred Extremities exam: PRESENT: full ROM. ABSENT: calf tenderness, clubbing, pedal edema Neurological exam: PRESENT: alert, awake, oriented to person, oriented to place, oriented to time, oriented to situation, CN II-XII grossly intact. ABSENT: motor sensory deficit Psychiatric exam: PRESENT: appropriate affect, normal mood. ABSENT: homicidal ideation, suicidal ideation Results Laboratory Results: WBC 10.0 10^3/uL (4.0-10.5) 06/14/20 05:24 RBC 3.71 10^6/uL (4.35-5.55) L 06/14/20 05:24 Hgb 10.8 g/dL (13.5-17.0) L 06/14/20 05:24 Hct 31.7 % (37.9-51.0) L 06/14/20 05:24 MCV 85 fl (80-97) 06/14/20 05:24 MCH 29.2 pg (27.0-33.4) 06/14/20 05:24 MCHC 34.1 g/dL (32.0-36.0) 06/14/20 05:24 RDW 16.0 % (11.5-14.0) H 06/14/20 05:24 Plt Count 254 10^3/uL (150-450) 06/14/20 05:24 Lymph % (Auto) 8.9 % (13-45) L 06/14/20 05:24 [place] % (Auto) 11.5 % (3-13) 06/14/20 05:24 Eos % (Auto) 0.1 % (0-6) 06/14/20 05:24 Baso % (Auto) 0.3 % (0-2) 06/14/20 05:24 Absolute Neuts (auto) 7.9 10^3/uL (1.7-8.2) 06/14/20 05:24 Absolute Lymphs (auto) 0.9 10^3/uL (0.5-4.7) 06/14/20 05:24 Absolute Monos (auto) 1.1 10^3/uL (0.1-1.4) 06/14/20 05:24 Absolute Eos (auto) 0.0 10^3/uL (0.0-0.6) 06/14/20 05:24 Absolute Basos (auto) 0.0 10^3/uL (0.0-0.2) 06/14/20 05:24 Total Counted 100 06/13/20 18:30 Seg Neutrophils % 79.2 % (42-78) H 06/14/20 05:24 Seg Neuts % (Manual) 91 % (42-78) H 06/13/20 18:30 Lymphocytes % (Manual) 4 % (13-45) L 06/13/20 18:30 Monocytes % (Manual) 5 % (3-13) 06/13/20 18:30 Eosinophils % (Manual) 0 % (0-6) 06/13/20 18:30 Basophils % (Manual) 0 % (0-2) 06/13/20 18:30 Abs Neuts (Manual) 10.5 10^3/uL (1.7-8.2) H 06/13/20 18:30 Abs Lymphs (Manual) 0.5 10^3/uL (0.5-4.7) 06/13/20 18:30 Abs Monocytes (Manual) 0.6 10^3/uL (0.1-1.4) 06/13/20 18:30 Absolute Eos (Manual) 0.0 10^3/uL (0.0-0.6) 06/13/20 18:30 Abs Basophils (Manual) 0.0 10^3/uL (0.0-0.2) 06/13/20 18:30 Platelet Comment ADEQUATE 06/13/20 18:30 Anisocytosis SLIGHT 06/13/20 18:30 Ovalocytes SLIGHT 06/13/20 18:30 Sodium 134.6 mmol/L (137-145) L 06/14/20 05:24 Potassium 4.3 mmol/L (3.6-5.0) 06/14/20 05:24 Chloride 105 mmol/L (98-107) 06/14/20 05:24 Carbon Dioxide 23 mmol/L (22-30) 06/14/20 05:24 Anion Gap 7 (5-19) 06/14/20 05:24 BUN 39 mg/dL (7-20) H 06/14/20 05:24 Creatinine 1.34 mg/dL (0.52-1.25) H 06/14/20 05:24 Est GFR ( Amer) > 60 (>60) 06/14/20 05:24 Est GFR (MDRD) Non-Af 52 (>60) L 06/14/20 05:24 Glucose 116 mg/dL (75-110) H 06/14/20 05:24 Hemoglobin A1c % 5.5 % (4.7-6.0) 06/14/20 05:24 Calcium 9.0 mg/dL (8.4-10.2) 06/14/20 05:24 Total Bilirubin 0.7 mg/dL (0.2-1.3) 06/13/20 18:30 Direct Bilirubin 0.3 mg/dL (0.0-0.4) 06/13/20 18:30 Neonat Total Bilirubin Not Reportable 06/13/20 18:30 Neonat Direct Bilirubin Not Reportable 06/13/20 18:30 Neonat Indirect Bili Not Reportable 06/13/20 18:30 AST 26 U/L (17-59) 06/13/20 18:30 ALT 12 U/L (<50) 06/13/20 18:30 Alkaline Phosphatase 170 U/L (38-126) H 06/13/20 18:30 Creatine Kinase 40 U/L (55-170) L 06/13/20 18:30 CK-MB (CK-2) 0.50 ng/mL (<4.55) 06/13/20 18:30 Troponin I < 0.012 ng/mL 06/14/20 11:22 Total Protein 6.5 g/dL (6.3-8.2) 06/13/20 18:30 Albumin 3.1 g/dL (3.5-5.0) L 06/13/20 18:30 TSH 1.12 uIU/mL (0.47-4.68) 06/13/20 18:30 Urine Color YELLOW 06/14/20 05:40 Urine Appearance SLIGHTLY-CLOUDY 06/14/20 05:40 Urine pH 5.0 (5.0-9.0) 06/14/20 05:40 Ur Specific [place] 1.013 06/14/20 05:40 Urine Protein NEGATIVE mg/dL (NEGATIVE) 06/14/20 05:40 Urine Glucose (UA) NEGATIVE mg/dL (NEGATIVE) 06/14/20 05:40 Urine Ketones NEGATIVE mg/dL (NEGATIVE) 06/14/20 05:40 Urine Blood NEGATIVE (NEGATIVE) 06/14/20 05:40 Urine Nitrite (Reflex) NEGATIVE (NEGATIVE) 06/14/20 05:40 Urine Bilirubin NEGATIVE (NEGATIVE) 06/14/20 05:40 Urine Urobilinogen NEGATIVE mg/dL (<2.0) 06/14/20 05:40 Leukocyte Esterase Rfl NEGATIVE (NEGATIVE) 06/14/20 05:40 Urine RBC (Auto) 1 /HPF 06/14/20 05:40 Urine WBC (Reflex) 4 /HPF 06/14/20 05:40 Squamous Epi Cells Auto <1 /HPF 06/14/20 05:40 Urine Mucus (Auto) RARE /LPF 06/14/20 05:40 Urine Ascorbic Acid NEGATIVE (NEGATIVE) 06/14/20 05:40 06/13/20 06/13/20 06/14/20 18:30 22:56 05:24 CK-MB (CK-2) 0.50 Troponin I < 0.012 < 0.012 < 0.012 06/14/20 11:22 CK-MB (CK-2) Troponin I < 0.012 Impressions: Chest X-Ray 06/13/20 18:20 IMPRESSION: Increased Left parahilar consolidation -nodularity and peripheral increased interstitial thickening. Plan Time Spent: Greater than 30 Minutes Stroke Is this a Stroke Patient?: No Acute Heart Failure Is this a Heart Failure Patient?: No
[2020-06-14] MEDS ORDERED: ATORVASTATIN CALCIUM 80 MG TABLET PO SCH (22:00)
[2020-06-14] MEDS ORDERED: AZITHROMYCIN 500 MG in DEXTROSE 5%-WATER 250 ML IV SCH (22:00)
[2020-06-14] MEDS ORDERED: CEFTRIAXONE 1 GM/D5W RTU 1 GM/50 ML RTUPB IV SCH (22:00)
--- NOTE | 2020-06-15 00:45 | EKG REPORT ---
SEVERITY:- ABNORMAL ECG - SINUS RHYTHM LEFT ANTERIOR FASCICULAR BLOCK LOW VOLTAGE IN FRONTAL LEADS : Confirmed by: Macie Hamlin MD 15-Jun-2020 00:45:18
[2020-06-15] MEDS ORDERED: LEVOFLOXACIN 500 MG TABLET PO SCH (10:00)
== END 2020-06-14 15:08 | disposition home or self-care (01) | DRG 308 ==
LOC: ER 18:10 → EH 21:11 → 5 23:21
PROVIDERS: ADMIT Hospitalist; ATTEND Internal Medicine
DX: I47.1 Supraventricular tachycardia (principal); J18.9 Pneumonia, unspecified organism; I10 Essential (primary) hypertension; E78.5 Hyperlipidemia, unspecified; I49.5 Sick sinus syndrome; Z66 Do not resuscitate; E78.00 Pure hypercholesterolemia, unspecified; J43.1 Panlobular emphysema; M10.9 Gout, unspecified; D57.1 Sickle-cell disease without crisis; I25.10 Atherosclerotic heart disease of native coronary artery without angina pectoris; R63.4 Abnormal weight loss; Z60.2 Problems related to living alone; Z79.01 Long term (current) use of anticoagulants; Z23 Encounter for immunization; Z95.0 Presence of cardiac pacemaker; Z79.82 Long term (current) use of aspirin; Z79.899 Other long term (current) drug therapy; Z85.118 Personal history of other malignant neoplasm of bronchus and lung; Z92.3 Personal history of irradiation; Z85.038 Personal history of other malignant neoplasm of large intestine; Z87.891 Personal history of nicotine dependence; Z88.6 Allergy status to analgesic agent; Z88.4 Allergy status to anesthetic agent; Z82.49 Family history of ischemic heart disease and other diseases of the circulatory system
CPT/HCPCS: 36415; 71045; 80048; 80053; 81001; 82550; 82553; 83036; 84443; 84484; 85025; 90471; 90686; 93005; 93010; 94762; 94799; 99285; G0008; J0456; J0696; J3490; J7120